=== PATIENT | female | born 1990 | race Two or more races ===

== ENCOUNTER 2019-02-14 06:21 | Emergency (ER) | payer BC, MEDICAID ==
[~2019-02-14] VITALS: Ht 177.8 cm; Wt 81.6 kg
[2019-02-14 07:27] VITALS: BP 158/90
[2019-02-14] MEDS ORDERED: ACETAMINOPHEN 325 MG TAB PO ONE (08:15)
[2019-02-14] MEDS ORDERED: ACET325T82 PO (08:15)
[2019-02-14] MEDS ORDERED: METHOCARBAMOL 500 MG TAB PO ONE (08:15)
== END 2019-02-14 08:18 | disposition home or self-care (01) ==
LOC: EDBD 06:21 → ER 06:21
DX: R07.89 Other chest pain (principal); V43.52XA Car driver injured in collision with other type car in traffic accident, initial encounter; Y93.I9 Activity, other involving external motion; Y92.410 Unspecified street and highway as the place of occurrence of the external cause; Y99.8 Other external cause status
CPT/HCPCS: 71101

== ENCOUNTER 2019-06-08 10:43 | Inpatient (IN) | payer BC, SELFPAY ==
[~2019-06-08] VITALS: Ht 185.4 cm; Wt 93.8 kg
[~2019-06-08 10:43] MED LIST: ACET325T82 PO
[2019-06-08 11:20] LABS: Eosinophils # (auto) 0 10 ^3/uL (0-0.8); Monocytes # (auto) 0.3 10 ^3/uL (0-1.3); Neutrophils # (auto) 5.2 10 ^3/uL (1.6-8.6)
[2019-06-08 11:22] LABS: Basophils # (auto) 0 10 ^3/uL (0-0.2); Basophils % (auto) 0.4 % (0.0-2.0); Hematocrit 42.3 % (36.0-46.0); Hemoglobin 13.7 g/dL (12.2-16.2); Lymphocytes # (auto) 2.5 10 ^3/uL (0.4-5.4); Lymphocytes % (auto) 31.2 % (10.0-50.0); Mean Corpuscular Hemoglobin 25.1 pg (28.0-32.0); Mean Corpuscular Hgb Conc. 32.5 g/dL (32.0-36.0); Mean Corpuscular Volume 77.4 fL (80.0-100.0); Monocytes % (auto) 3.8 % (0.0-12.0); Neutrophils % (auto) 64.6 % (37.0-80.0); Nucleated Red Blood Cells % 0.1 %; Platelet Count (auto) 209 10^3/uL (140-450); Red Blood Cells 5.46 10^6/uL (4.0-5.20)
[2019-06-08] MEDS ORDERED: SODIUM CHLORIDE 0.9% 1,000 ML IVB ONE (11:26)
[2019-06-08] MEDS ORDERED: PROMETHAZINE HCL 25 MG/ML 1ML IV PRN (11:30)
[2019-06-08 11:38] LABS: Albumin 2.9 g/dL (3.4-5.0); Calcium 8.5 mg/dL (8.5-10.1); Potassium 3.3 mmol/L (3.5-5.1)
[2019-06-08 11:41] LABS: BUN/Creatinine Ratio 6.5; Bilirubin, Total 0.3 mg/dL (0.2-1.0); Total Protein 8.3 g/dL (6.4-8.2)
[2019-06-08 12:00] LABS: Magnesium 1.9 mg/dL (1.6-2.6)
[2019-06-08] MEDS ORDERED: AZITHROMYCIN 500MG/ 250ML 250 ML IV ONE (13:00)
[2019-06-08] MEDS ORDERED: DEXTROSE (50%) 50ML SYRG IV PRN (14:15)
[2019-06-08] MEDS ORDERED: NITROGLYCERIN 0.4 MG SL TAB SL PRN (14:15)
[2019-06-08] MEDS ORDERED: MORPHINE SULF INJ 2 MG/ML SYRINGE 1ML IV PRN (14:15)
[2019-06-08] MEDS ORDERED: ACETAMINOPHEN 325 MG TAB PO ONE (14:15)
[2019-06-08] MEDS: cefTRIAXone 1GM/50ML D5W 50 ML IV SCH (15:04)
[2019-06-08] MEDS: metroNIDAZOLE 500MG/100ML 100 ML IV SCH ×2 (15:05→21:46)
[2019-06-08 15:16] LABS: CRP High Sensitivity 9.23 mg/dL (< 0.3)
[2019-06-08] MEDS: ZINC SULFATE 220mg CAP or TAB PO SCH (16:22)
[2019-06-08] MEDS: CHOLECALCIFEROL (VITD3) 1,000IU=25mCg TAB PO SCH (16:22)
[2019-06-08] MEDS: ASCORBIC ACID 500 MG TAB PO SCH (16:22)
[2019-06-08] MEDS ORDERED: GLIP10TA9 PO (16:24)
[2019-06-08] MEDS ORDERED: METF-372 PO (16:24)
[2019-06-08] MEDS ORDERED: ENAL2.5T2 PO (16:24)
[2019-06-08] MEDS: ACCU-CHEK COMFORT CURVE STRIP VI SCH ×2 (17:44→21:47)
[2019-06-08] MEDS: InsuLIN REG 1unit/0.01ml Soln (100units/ml) SC SCH ×2 (17:45→22:21)
[2019-06-08 19:45] VITALS: BP 110/69
--- NOTE | 2019-06-08 19:45 | NUR ---
OPENING SHIFT NOTE: ASSUMED CARE OF PATIENT, A&O X4, NO S/S OF SOB OR DISTRESS, DENIES PAIN, BED IS LOW, LOCKED, TWO SIDE RAILS RAISED, CALL ELI WITHIN REACH. INSTRUCTED ON POC AND TO CALL FOR ASSISTANCE, PATIENT VERBALIZED UNDERSTANDING. WILL CONTINUE TO MONITOR Q 1HR AND PRN.
[2019-06-08 20:00] VITALS: BP 107/61
[2019-06-08] MEDS ORDERED: ALBUTEROL SULF HFA 90MCG INH 200DOSE IN SCH (22:00)
[2019-06-09] VITALS (7 sets, daily range): BP systolic 112–119; BP diastolic 60–68
[2019-06-09] MEDS: metroNIDAZOLE 500MG/100ML 100 ML IV SCH ×3 (06:25→21:59)
[2019-06-09] MEDS: ACCU-CHEK COMFORT CURVE STRIP VI SCH ×4 (06:25→22:27)
[2019-06-09] MEDS: InsuLIN REG 1unit/0.01ml Soln (100units/ml) SC SCH ×4 (06:33→22:28)
[2019-06-09] MEDS: ACETAMINOPHEN 500 MG TAB PO PRN (06:41)
[2019-06-09 06:50] LABS: Basophils # (auto) 0 10 ^3/uL (0-0.2); Eosinophils # (auto) 0 10 ^3/uL (0-0.8); Eosinophils % (auto) 0.1 % (0.0-7.0); Hemoglobin 11.8 g/dL (12.2-16.2); Lymphocytes # (auto) 1.7 10 ^3/uL (0.4-5.4); Monocytes # (auto) 0.2 10 ^3/uL (0-1.3); Neutrophils # (auto) 2.3 10 ^3/uL (1.6-8.6); Nucleated Red Blood Cells % 0.1 %; White Blood Cell 4.2 10^3/uL (4.4-10.8)
[2019-06-09 06:54] LABS: Basophils % (auto) 0.2 % (0.0-2.0); Hematocrit 35.6 % (36.0-46.0); Lymphocytes % (auto) 40.1 % (10.0-50.0); Mean Corpuscular Hemoglobin 25.4 pg (28.0-32.0); Mean Corpuscular Hgb Conc. 33.2 g/dL (32.0-36.0); Mean Corpuscular Volume 76.6 fL (80.0-100.0); Monocytes % (auto) 4.4 % (0.0-12.0); Neutrophils % (auto) 55.2 % (37.0-80.0); Platelet Count (auto) 189 10^3/uL (140-450); Red Blood Cells 4.64 10^6/uL (4.0-5.20); Red Cell Distribution Width 16.2 % (11.8-14.3)
--- NOTE | 2019-06-09 07:06 | NUR ---
TEMPERATURE IS 101.2. PATIENT IS UNCOVERED IN THE BED AND DENIES ANY CHILLS. NO S/S OF DISTRESS OR SOB. WILL MEDICATE FOR FEVER.
[2019-06-09 07:09] LABS: Potassium 3.3 mmol/L (3.5-5.1)
[2019-06-09 07:18] LABS: Albumin 2.3 g/dL (3.4-5.0); BUN/Creatinine Ratio 8.8; Bilirubin, Total 0.2 mg/dL (0.2-1.0); Calcium 8.2 mg/dL (8.5-10.1); Total Protein 6.8 g/dL (6.4-8.2)
--- NOTE | 2019-06-09 08:30 | NUR ---
OPENING SHIFT NOTE: PATIENT RESTING IN BED LYING IN BED LOW-FOWLERS. PATIENT SATURATIONS ON 4L NC AT 88-89%. PATIENT PLACED ON OXYMIZER AT 4L. PATIENT STILL SATURATING AT 89-90%. OXYMIZER INCREASED TO 5L. NOW SATURATING AT 92%. PATIENT INSTRUCTED TO USE INCENTIVE SPIROMETER. VERBALIZED UNDERSTANDING. PATIENT INSTRUCTED TO AMBULATE IN ROOM AND TO SIT IN CHAIR. VERBALIZED UNDERSTANDING. PATIENT UPDATED ON POC. ALL QUESTIONS ANSWERED. BED IN LOWEST LOCKED POSITION WITH CALL LIGHT WITHIN REACH. LEFT SAMPLE CUPS FOR PATIENT TO COLLECT STOOL AND URINE SAMPLE. WILL CONTINUE CARE.
[2019-06-09] MEDS: cefTRIAXone 1GM/50ML D5W 50 ML IV SCH (09:16)
[2019-06-09] MEDS: ZINC SULFATE 220mg CAP or TAB PO SCH (09:17)
[2019-06-09] MEDS: CHOLECALCIFEROL (VITD3) 1,000IU=25mCg TAB PO SCH (09:17)
[2019-06-09] MEDS: ASCORBIC ACID 500 MG TAB PO SCH (09:17)
[2019-06-09] MEDS: ENOXAPARIN SOD 40 MG/0.4 ML SYRINGE SC SCH (09:19)
[2019-06-09] MEDS ORDERED: AZITHROMYCIN 500MG/ 250ML 250 ML IV SCH (10:00)
[2019-06-09] MEDS ORDERED: AZITHROMYCIN DIHYD 500 MG VIAL IV SCH (10:00)
[2019-06-09] MEDS ORDERED: POTASSIUM CHL 20 Meq TABLET PO ONE (10:30)
[2019-06-09 10:49] LABS: Cholesterol 94 mg/dL (< 200)
[2019-06-09 10:52] LABS: HDL Cholesterol 29 mg/dL (40-59); LDL Cholesterol 39 mg/dL (< 100); Triglycerides 198 mg/dL (< 150)
[2019-06-09] MEDS ORDERED: AZITHROMYCIN 250 MG TAB PO ONE (11:00)
--- NOTE | 2019-06-09 11:23 | NUR ---
INFLUENZA SWAB SENT.
--- NOTE | 2019-06-09 12:30 | NUR ---
MD AT BEDSIDE: DR. KLEIN AT BEDSIDE, DISCUSSED PLAN OF CARE WITH PATIENT, PENDING RESULTS FOR AREVALO VIRUS, AND MANAGEMENT OF DIABETES. PATIENT VERBALIZED UNDERSTANDING, CONTINUE CARE.
[2019-06-09] MEDS: ALBUTEROL SULF HFA 90MCG INH 200DOSE IN SCH ×2 (14:00→22:27)
--- NOTE | 2019-06-09 14:38 | NUR ---
INSTRUCTED PATIENT TO PLEASE PROVIDE A URINE SAMPLE CUP LEFT AT BEDSIDE.
[2019-06-09] MEDS: INSULIN LISPRO (HUMAN) 100 UNITS/ML ML SC SCH (17:38)
--- NOTE | 2019-06-09 18:30 | NUR ---
RESPIRATORY CULTURE SENT. RE-EDUCATED PATIENT ON NEED FOR URINE SAMPLE.
--- NOTE | 2019-06-09 19:30 | NUR ---
OPENING SHIFT NOTE: ASSUMED CARE OF PATIENT, PATIENT IS ALERT AND ORIENTED X4, PATIENT DENIES ANY SOB, PAIN OR DISTRESS. INSTRUCTED POC AND TO CALL IF PATIENT NEEDED ANYTHING, PATIENT VERBALIZED UNDERSTANDING. PATIENTS O2 SATURATION AT THIS TIME IS 90% ON 6L OXIMIZER. WILL CONTINUE TO MONITOR.
[2019-06-09] MEDS: FLORASTOR (S. BOULARDII) 250 MG CAP PO SCH (22:00)
[2019-06-09] MEDS ORDERED: INSULIN LANTUS (GLARGINE) 1 /0.01ml (100units/ml) SC SCH (22:00)
--- NOTE | 2019-06-09 22:00 | NUR ---
PATIENT ASSESSMENT: PATIENT IS AWAKE, ALERT, AND ORIENTED X4, BED IS LOW, LOCKED, TWO SIDE RAILS RAISED, AND CALL ELI IS WITHIN REACH. PROVIDED EDUCATION REGARDING NEW INSULIN, PATIENT VERBALIZED UNDERSTANDING. 1 PUFF VENTOLIN INHALER GIVEN AT THIS TIME, PATIENT DENIES ANY SOB, RESPIRATIONS ARE EVEN AND UNLABORED, O2 SATURATION IS 90% ON 6L OXIMIZER NC.
--- NOTE | 2019-06-09 22:27 | NUR ---
RT NOTE MDI GIVEN BY TRENTON LICONA WITHOUT INCIDENT. RT MADE SURE RN WAS FAMILIAR WITH THE PROPER ADMINISTRATION OF MDI.
--- NOTE | 2019-06-10 01:56 | NUR ---
PATIENT DID NOT VOID IN COLLECTION CONTAINER, PROVIDED ADDITIONAL EDUCATION REGARDING NEED TO COLLECT URINE AND SEND TO LAB. PATIENT STATED SHE FORGOT AND VERBALIZED UNDERSTANDING.
[2019-06-10] MEDS: ALBUTEROL SULF HFA 90MCG INH 200DOSE IN SCH ×3 (06:00→22:55)
--- NOTE | 2019-06-10 06:30 | NUR ---
COVID NEGATIVE RECEIVED CALL FROM CHARGE THAT PATIENT IS NEGATIVE FOR COVID. WILL ENDORSE CARE TO LEONOR LEONARD RN AND TRANSFER PATIENT TO ROOM 214B AT SHIFT CHANGE.
[2019-06-10] MEDS: metroNIDAZOLE 500MG/100ML 100 ML IV SCH (06:39)
[2019-06-10] MEDS: LEVOTHYROXINE SODIUM 25 MCG TAB PO SCH (07:10)
[2019-06-10] MEDS: INSULIN LISPRO (HUMAN) 100 UNITS/ML ML SC SCH ×3 (07:11→17:19)
[2019-06-10] MEDS: ACCU-CHEK COMFORT CURVE STRIP VI SCH ×4 (07:13→22:00)
[2019-06-10] MEDS: InsuLIN REG 1unit/0.01ml Soln (100units/ml) SC SCH ×4 (07:13→23:40)
--- NOTE | 2019-06-10 07:32 | NUR ---
REPORT GIVEN IN DETAIL TO LEONOR CHOWDHURY.
[2019-06-10 07:35] LABS: Calcium 8.3 mg/dL (8.5-10.1); Magnesium 1.8 mg/dL (1.6-2.6); Potassium 3.5 mmol/L (3.5-5.1)
[2019-06-10 07:40] LABS: BUN/Creatinine Ratio 7.7
--- NOTE | 2019-06-10 08:22 | NUR ---
PATIENT TRANSPORTED VIA WHEELCHAIR WITHOUT INCIDENT TO THE CARE OF PRIMARY RN.
--- NOTE | 2019-06-10 08:30 | NUR ---
PATIENT ON UNIT IN ROOM 214B REPORT RECIEVED FROM TRENTON LICONA NOC SHIFT. TRANSPORTED VIA WHEELCHAIR WITH ALL PERSONAL BELONGINGS, ORIENTED TO ROOM, BED IN LOW AND LOCKED POSITION, RAILS UPX2, NO-SLIP SOCKS ON. OXYGEN ON 6L VIA OXYMIZER SATURATING AT 86%, INCREASED TO 8L. PROVIDED PATIENT WITH BEDSIDE COMMODE AND URINE SPECIMEN CUP, REQUESTING A SAMPLE, PATIENT VERBALIZES UNDERSTANDING.
[2019-06-10 09:00] VITALS: BP 103/52
--- NOTE | 2019-06-10 09:30 | NUR ---
INCREASED OXYGEN SUPPLEMENTATION PATIENT PULSE OXIMETRY ON REASSESSMENT SHOWS 88% ON 8L OXYMIZER, INCREASED TO 10L WITH SMALL IMPROVEMENT TO 89% AFTER TEN MINUTES. NOTIFIED DR HRARIS. NEW ORDERS ADDED TO RETEST FOR COVID FOR POSSIBLE FALSE NEGATIVE, CONTINUOUS PULSE OXIMETER IN ROOM. PAGE TO RT SENT, DR HARRIS STATED WILL BE AT NURSES STATION FOR ORDERS.
--- NOTE | 2019-06-10 09:59 | NUR ---
pt connected to continuous pulse ox monitor. spo2 88% on 15 liters oxymizer. rn aware.
--- NOTE | 2019-06-10 10:05 | NUR ---
DORA SPECIMEN COLLECTED AMBULATED BY TRENTON FUENTES TO LAB
[2019-06-10 10:13] LABS: Basophils # (auto) 0 10 ^3/uL (0-0.2); Basophils % (auto) 0.5 % (0.0-2.0); Eosinophils # (auto) 0 10 ^3/uL (0-0.8); Hematocrit 34.9 % (36.0-46.0); Hemoglobin 11.6 g/dL (12.2-16.2); Lymphocytes # (auto) 1.8 10 ^3/uL (0.4-5.4); Mean Corpuscular Hemoglobin 25.6 pg (28.0-32.0); Mean Corpuscular Hgb Conc. 33.4 g/dL (32.0-36.0); Mean Corpuscular Volume 76.8 fL (80.0-100.0); Monocytes # (auto) 0.3 10 ^3/uL (0-1.3); Monocytes % (auto) 4.8 % (0.0-12.0); Neutrophils # (auto) 3.5 10 ^3/uL (1.6-8.6); Neutrophils % (auto) 62.7 % (37.0-80.0); Platelet Count (auto) 245 10^3/uL (140-450); Red Blood Cells 4.54 10^6/uL (4.0-5.20); Red Cell Distribution Width 15.9 % (11.8-14.3); White Blood Cell 5.6 10^3/uL (4.4-10.8)
[2019-06-10] MEDS ORDERED: MAGNESIUM OXIDE 400 MG TAB PO ONE (10:15)
[2019-06-10] MEDS ORDERED: POTASSIUM CHL 20 Meq TABLET PO ONE (10:15)
[2019-06-10] MEDS ORDERED: VANCOMYCIN PER PHARMACY 0 MG IV SCH (10:15)
--- NOTE | 2019-06-10 10:30 | NUR ---
PATIENT TRANSFERRED TO 237 PATIENT TRANSPORTED VIA WHEELCHAIR TO ROOM 237 WITH ALL PERSONAL BELONGINGS BY RN WITH BOTH PARTIES WEARING N95. PATIENT ON 15L OXYMIZER AND TELEMETRY MONITORING.
--- NOTE | 2019-06-10 10:35 | NUR ---
PATIENT RETURNED TO ROOM 237. REPORT RECEIVED FROM TRENTON CHERRY.
--- NOTE | 2019-06-10 10:40 | NUR ---
REPORT GIVEN TO ACCEPTING RN SPOKE TO TRENTON GUPTA, ALL QUESTIONS ANSWERED
[2019-06-10] MEDS ORDERED: methylPREDNISolone SOD SUCC 40 MG/ML VL IV ONE (10:45)
[2019-06-10] MEDS: ENOXAPARIN SOD 40 MG/0.4 ML SYRINGE SC SCH (11:00)
[2019-06-10] MEDS: ZINC SULFATE 220mg CAP or TAB PO SCH (11:00)
[2019-06-10] MEDS: ASCORBIC ACID 500 MG TAB PO SCH (11:00)
[2019-06-10] MEDS: AZITHROMYCIN 250 MG TAB PO SCH (11:00)
[2019-06-10] MEDS: CHOLECALCIFEROL (VITD3) 1,000IU=25mCg TAB PO SCH (11:00)
[2019-06-10] MEDS: FLORASTOR (S. BOULARDII) 250 MG CAP PO SCH ×2 (11:00→22:21)
[2019-06-10] MEDS: VANCOMYCIN 1GM/250ML 250 ML IV SCH ×2 (11:00→19:00)
[2019-06-10] MEDS ORDERED: SODIUM CHLORIDE 0.9% 500 ML IV ONE (11:15)
[2019-06-10] MEDS ORDERED: ENOXAPARIN SOD 100 MG/1 ML SYRINGE SC ONE (11:45)
--- NOTE | 2019-06-10 12:45 | NUR ---
DR. HARRIS AT BEDSIDE. NEW ORDERS RECEIVED AND CARRIED OUT.
[2019-06-10] MEDS ORDERED: ENOXAPARIN SOD 60 MG/0.6 ML SYRINGE SC ONE (13:15)
[2019-06-10 13:21] LABS: Partial Thromboplastin Time 32.3 sec (23.64-32.05)
[2019-06-10] MEDS: MEROPENEM 1GM IVPB 100 ML IV SCH ×2 (16:13→22:21)
--- NOTE | 2019-06-10 16:30 | NUR ---
CALLED [facility] TO GIVE REPORT. NURSE WAS IN COVID-19 POSITIVE PATIENT ROOM. ADVISED THEY WOULD CALL WHEN SHE WAS AVAILABLE.
--- NOTE | 2019-06-10 17:20 | NUR ---
REPORT GIVEN TO TRENTON YOU.
--- NOTE | 2019-06-10 17:24 | NUR ---
CT OF [facility] PENDING REPORT OBTAINED. RN AWARE CT OF CHEST PENDING TODAY. REQUESTED RN TO TRANSFER FOR CT OF CHEST BEFORE ARRIVAL TO [facility]. RN VERBALIZED UNDERSTANDING.
--- NOTE | 2019-06-10 17:45 | NUR ---
PATIENT TAKEN DOWN TO CT VIA WHEELCHAIR BY RESOURCE TRENTON FUENTES.
--- NOTE | 2019-06-10 17:46 | NUR ---
PATIENT WILL BE TAKEN TO [facility] AFTER CT BY RESOURCE TRENTON FUENTES.
[2019-06-10] MEDS ORDERED: IOHEXOL 350 MG/ML 100ML IJ ONE (17:50)
[2019-06-10 18:00] VITALS: BP 111/59
--- NOTE | 2019-06-10 18:00 | NUR ---
[facility] pt transferred to floor LALITA DONOVAN transfered to 263 via [facility] on fermentation operator and portable 02 15L/MIN non-rebreather. Patients pox fluctuating 85-88%. Patient does not appear to have muscle accessory use, patient only stating," I feel fine, its just when I move around I get a little sob". All patient medications and personal belongings transfered with patient to receiving floor. R.t paged of arrival as patient is to be placed on a high flow. - Patient alert and oriented x4, denies any pain. Moves all extremities. Patient noted SR. BP stable. Lungs diminished, no cough noted. Abd soft. Patient stating she started her menstrual cycle on 06/07/19 and is currently mensurating. Per patient she urinating 2x today via bsc. Informed patient all urine is to be monitored at this time. All skin intact. IV to left forearm 20g intact/ patent. See further notes. All questions and concerns addressed.
[2019-06-10 19:03] VITALS: BP 100/51
[2019-06-10 20:00] VITALS: BP 122/73
[2019-06-10] MEDS ORDERED: INSULIN LANTUS (GLARGINE) 1 /0.01ml (100units/ml) SC SCH (22:00)
--- NOTE | 2019-06-10 22:00 | NUR ---
MD called to check on pt. New orders given to do T cell panel but order not found in order list so lab was called and they said it was a "send out" and they ordered the order under misc. Also ordered by MD was a CXR at 0700 and a CD4. Pt is stable at this time. RT requested FiO2 to be increased to 95%. Pt did inhaler at bedside. Tolerated all meds well. NS started at 75ml/hr per order from MD. Stable at this time. Will continue to monitor.
[2019-06-10] MEDS: MAGNESIUM OXIDE 400 MG TAB PO SCH (22:21)
[2019-06-10] MEDS: methylPREDNISolone SOD SUCC 40 MG/ML VL IV SCH (22:21)
[2019-06-10] MEDS: ENOXAPARIN SOD 100 MG/1 ML SYRINGE SC SCH (22:22)
[2019-06-10 22:55] VITALS: BP 111/57
[2019-06-10] MEDS ORDERED: SODIUM CHLORIDE 0.9% 1,000 ML IV SCH (23:30)
[2019-06-10 23:51] VITALS: BP 111/57
--- NOTE | 2019-06-11 01:54 | NUR ---
Pt remains stable at this time. No S/S of distress and seems to be resting comfortably on HiFlow. Will continue to monitor.
[2019-06-11] MEDS: VANCOMYCIN 1GM/250ML 250 ML IV SCH ×3 (03:00→21:08)
[2019-06-11] MEDS: ALBUTEROL SULF HFA 90MCG INH 200DOSE IN SCH ×3 (05:55→21:07)
--- NOTE | 2019-06-11 05:55 | NUR ---
Respiratory note: SPO2 86 UPON ENTERING ROOM. FLOW INCREASED TO 60. INHALER GIVEN BY RT, WITHOUT INCIDENT. RN AT BEDSIDE. BS DIMINISHED. PT SAT UPRIGHT. SPO2 NOW 92%.
[2019-06-11] MEDS: MEROPENEM 1GM IVPB 100 ML IV SCH ×3 (06:00→22:00)
[2019-06-11] MEDS: ACCU-CHEK COMFORT CURVE STRIP VI SCH ×4 (06:53→22:00)
[2019-06-11] MEDS: InsuLIN REG 1unit/0.01ml Soln (100units/ml) SC SCH ×4 (06:54→22:00)
[2019-06-11] MEDS: LEVOTHYROXINE SODIUM 25 MCG TAB PO SCH (07:00)
[2019-06-11] MEDS: INSULIN LISPRO (HUMAN) 100 UNITS/ML ML SC SCH ×3 (07:29→18:29)
--- NOTE | 2019-06-11 07:30 | NUR ---
Pt desat down to 85% on 100% FiO2. RT turned up liters to 50LPM on HiFlow. Pt tolerated well satting at 92%. Discussed with pt if she had to be intubated would she want that. She said as a last resort that it would be acceptable. She is scared but understands that if she has to be intubated that it would be of benefit. Labs drawn. Report given, care endorsed.
--- NOTE | 2019-06-11 08:00 | NUR ---
REPORT RECEIVED PATIENT IN SEMI FOWLERS WATCHING TV ON HIGH FLOW, POX 92%. NO DISTRESS NOTED. SEE FURTHER NOTES.
[2019-06-11 08:33] VITALS: BP 109/56
[2019-06-11 08:54] LABS: Albumin 2.4 g/dL (3.4-5.0); Calcium 8.5 mg/dL (8.5-10.1); Potassium 4.4 mmol/L (3.5-5.1)
[2019-06-11 08:57] LABS: BUN/Creatinine Ratio 15.8; Bilirubin, Total 0.3 mg/dL (0.2-1.0); Total Protein 6.6 g/dL (6.4-8.2)
[2019-06-11 09:20] VITALS: BP 109/56
--- NOTE | 2019-06-11 10:00 | NUR ---
MD DR. HARRIS AT BEDSIDE. SPOKE TO PATIENT, ENCOURAGED I.S AND INCREASING ACTIVITY SLIGHTLY AROUND THE ROOM TOLERATED. PER MD. LOVENOX AT 100MG TO CONTINUE.
--- NOTE | 2019-06-11 10:00 | NUR ---
ACTIVITY PATIENT NOTED TO BE STANDING AT EDGE OF BED WITH SLIGHT DESATURATION TO 86%. PATIENT REMAINED CALM AND 02 INCREASED BACK TO 90-92%. ACTIVITY TOLERATED FAIRLY WITH STEADY GAIT. PATIENT RETURNED BACK TO EDGE OF BED INDEPENDENTLY WITHOUT PROBLEM.
[2019-06-11] MEDS: methylPREDNISolone SOD SUCC 40 MG/ML VL IV SCH ×2 (10:03→21:08)
[2019-06-11] MEDS: FLORASTOR (S. BOULARDII) 250 MG CAP PO SCH ×2 (10:04→21:08)
[2019-06-11] MEDS: AZITHROMYCIN 250 MG TAB PO SCH (10:04)
[2019-06-11] MEDS: MAGNESIUM OXIDE 400 MG TAB PO SCH ×2 (10:04→21:08)
[2019-06-11] MEDS: ZINC SULFATE 220mg CAP or TAB PO SCH (10:04)
[2019-06-11] MEDS: ASCORBIC ACID 500 MG TAB PO SCH (10:05)
[2019-06-11] MEDS: CHOLECALCIFEROL (VITD3) 1,000IU=25mCg TAB PO SCH (10:13)
[2019-06-11] MEDS: ENOXAPARIN SOD 100 MG/1 ML SYRINGE SC SCH ×2 (10:13→21:09)
--- NOTE | 2019-06-11 12:00 | NUR ---
NUTRITION PATIENT TOLERATING LUNCH TRAY. EATING INDEPENDENTLY. 02 DECREASED SLIGHTLY TO 85%, PATIENT NOTED TO TAKE BREAKS IN BETWEEN AND ABLE TO INCREASE BACK TO 92%.
[2019-06-11 12:20] VITALS: BP 107/61
[2019-06-11 14:10] VITALS: BP 107/61
--- NOTE | 2019-06-11 15:00 | NUR ---
ELIMINATION PATIENT ABLE TO USE BSC INDEPENDENTLY. PATIENT HAD A MIXED STOOL OF BROWN LOOSE/ WATERY BM WITH VAL COLORED URINE, APPROX. 800CC. WILL CONTINUE TO MONITOR. CYLINDER PLACED IN BSC FOR ACCURATE OUTPUT. UA/ PENDING. PATIENT AWARE TO NOTIFY NURSE WHEN AVAILABLE.
[2019-06-11 16:05] VITALS: BP 109/49
--- NOTE | 2019-06-11 16:30 | NUR ---
RESTING PATIENT RESTING AT THIS TIME. SLEEPING, PT REMAINS ON HIGH FLOW AT 60LITERES/ 100% FI02. POX NOTED AT 95% NO DISTRESS NOTED.
--- NOTE | 2019-06-11 17:35 | NUR ---
NUTRITION PATIENT GIVEN DINNER TRAY. PATIENT NOTED TO TRANSFER INDEPENDENTLY TO CHAIR AT BEDSIDE. NO DISTESS NOTED. PATIENT AWARE TO TAKEN BREAKS IF SOB OR DESATURATION.
--- NOTE | 2019-06-11 19:00 | NUR ---
Opening Shift Note: Primary RN Angel Garay received report on patient. Patient is A/Ox 4. Patient currently on high flow 60L with FIO2 100%. Patient currently in no signs of discomfort or distress. Safety precautions in place. Will continue to monitor. Patient on isolation for rule out COVID 19. RN to monitor patient Q 1 hour and as needed. Patient educated on calling the nurse for any assistance. Patient verbalized understanding of teaching provided.
[2019-06-11 20:00] VITALS: BP 108/64
[2019-06-11] MEDS ORDERED: INSULIN LANTUS (GLARGINE) 1 /0.01ml (100units/ml) SC SCH (22:00)
--- NOTE | 2019-06-11 22:40 | NUR ---
RT NOTE RN AT BEDSIDE DOING CARES, CARMEN WATER FOR HFNC WAS LOW. NEW WATER GIVN Addendum: 06/11/19 at 2241 by Margi Kitchen RT GIVEN TO TRENTON DONNELLY RT AT DOOR WATCHING RN CHANGE THE WATER. ALARM ON HFNC OFF AND TEMP IS GOOD.
[2019-06-11 23:11] LABS: Urine Bacteria NONE SEEN /hpf (None Seen); Urine Blood 3+ /uL (Negative); Urine Mucus FEW (None Seen); Urine WBC 43 /hpf (0 - 5)
--- NOTE | 2019-06-11 23:42 | NUR ---
RN received call from Dr. Hunt. made aware of patient's condition and situation. No new orders at this time. RN will continue to monitor and assess patient. Addendum: 06/12/19 at 0014 by JUANI ESPOSITO RN RN Dr. Hunt was informed how patient continues with periods of desaturation and drops to 86% and then jumps back up to 92%. Dr. Hunt recommends that patient lay prone to see if it helps with her breathing. RN will inform patient.
--- NOTE | 2019-06-11 23:45 | NUR ---
RN spoke with patient: RN informed patient that Dr. Hunt recommends she lay on her stomach in a prone position to help with her breathing. Patient verbalized understanding of teaching provided and informed RN she will attempt to lay in a prone position.
[2019-06-11 23:49] LABS: Amphetamine Screen, Urine NEGATIVE (NEGATIVE); Barbiturate Scree,Urine NEGATIVE (NEGATIVE); Benzodiazephine Screen, Urine NEGATIVE (NEGATIVE); Cannabinoid Screen, Urine NEGATIVE (NEGATIVE); Cocaine Screen, Urine NEGATIVE (NEGATIVE); Opiate Scree,Urine NEGATIVE (NEGATIVE); Phencyclidine Screen, Urine NEGATIVE (NEGATIVE)
[2019-06-12] VITALS (9 sets, daily range): BP systolic 103–120; BP diastolic 61–71
--- NOTE | 2019-06-12 00:10 | NUR ---
Patient now noted with a oxygen saturation of 97%. RN will continue to monitor and assess patient.
--- NOTE | 2019-06-12 01:02 | NUR ---
Patient continues to have an oxygen saturation of 97% and above and now has been having an oxygen saturation of 100%. Patient laying in a prone position continues to be effective in helping patient breath and maintain an oxygen saturation above 97%.
--- NOTE | 2019-06-12 03:00 | NUR ---
RT dropped patients high flow to 55L and FIO2 of 70%. Patient is initially tolerating supplemental oxygen change.
--- NOTE | 2019-06-12 03:30 | NUR ---
Patient began to de sat to 84-86%. RN placed patient back to her original measurements which are now back to 60L and FIO2 of 100%. Patient now saturating at 97%. RT notified.
--- NOTE | 2019-06-12 05:00 | NUR ---
Primary RN faye patient's morning labs with patients consent. Patient tolerated intervention well with no s/s of discomfort or distress.
--- NOTE | 2019-06-12 05:13 | NUR ---
ISOLATION PATIENT IS NEGATIVE FOR COVID 19 PATIENT IS ON HIGH FLOW O2 AND WILL NEED TO REMAIN ON ISOLATION UNTIL DR HARRIS SEES THE PATIENT AND CLEARS HIM TODAY. PRIMARY RN JUANI NOTIFIED
--- NOTE | 2019-06-12 05:15 | NUR ---
RN asked patient to bathe but patient refused. Patient states he feels clean and does not want to bathe at this time. RN cleaned patients room and organized all room essentials. Patient was thankful but still refused bath at this time. RN tucked patient into bed and organized bed linen. Patient continues to rest peacefully and comfortably with no s/s of discomfort or distress.
[2019-06-12 05:18] LABS: Basophils # (auto) 0 10 ^3/uL (0-0.2); Basophils % (auto) 0.2 % (0.0-2.0); Eosinophils # (auto) 0 10 ^3/uL (0-0.8)
[2019-06-12 05:21] LABS: Hematocrit 33.5 % (36.0-46.0); Hemoglobin 11.4 g/dL (12.2-16.2); Lymphocytes # (auto) 1.3 10 ^3/uL (0.4-5.4); Lymphocytes % (auto) 17.5 % (10.0-50.0); Mean Corpuscular Hemoglobin 25.9 pg (28.0-32.0); Mean Corpuscular Hgb Conc. 33.9 g/dL (32.0-36.0); Mean Corpuscular Volume 76.6 fL (80.0-100.0); Monocytes # (auto) 0.5 10 ^3/uL (0-1.3); Monocytes % (auto) 7.4 % (0.0-12.0); Neutrophils # (auto) 5.4 10 ^3/uL (1.6-8.6); Neutrophils % (auto) 74.9 % (37.0-80.0); Nucleated Red Blood Cells % 0.2 %; Platelet Count (auto) 353 10^3/uL (140-450); Red Blood Cells 4.37 10^6/uL (4.0-5.20); Red Cell Distribution Width 16.1 % (11.8-14.3); White Blood Cell 7.3 10^3/uL (4.4-10.8)
[2019-06-12] MEDS: ALBUTEROL SULF HFA 90MCG INH 200DOSE IN SCH ×3 (05:31→21:33)
[2019-06-12] MEDS: MEROPENEM 1GM IVPB 100 ML IV SCH ×3 (05:31→21:33)
[2019-06-12 05:45] LABS: Albumin 2.3 g/dL (3.4-5.0); Calcium 8.7 mg/dL (8.5-10.1)
[2019-06-12 05:53] LABS: BUN/Creatinine Ratio 14.8; Bilirubin, Total 0.2 mg/dL (0.2-1.0); CRP High Sensitivity 3.87 mg/dL (< 0.3); Total Protein 7.2 g/dL (6.4-8.2)
--- NOTE | 2019-06-12 06:00 | NUR ---
OUTPUT: Patient had 1,800 mL of urine output.
[2019-06-12] MEDS: LEVOTHYROXINE SODIUM 25 MCG TAB PO SCH (06:24)
[2019-06-12] MEDS: ACCU-CHEK COMFORT CURVE STRIP VI SCH ×4 (06:24→22:04)
[2019-06-12] MEDS: VANCOMYCIN 1GM/250ML 250 ML IV SCH ×3 (06:24→22:01)
--- NOTE | 2019-06-12 06:24 | NUR ---
Second IV attempt: RN attempted to start another IV on patient to her Right AC but patient refused and stated her current IV still works and is not bother her. Patient states she will notify RN when her current IV begins to bother her so a second IV can be started.
[2019-06-12] MEDS: InsuLIN REG 1unit/0.01ml Soln (100units/ml) SC SCH ×4 (06:25→22:03)
[2019-06-12] MEDS ORDERED: INSULIN LISPRO (HUMAN) 100 UNITS/ML ML SC SCH (07:00)
--- NOTE | 2019-06-12 08:00 | NUR ---
Opening Shift Note Assumed care of patient, awake and alert, sitting on the bed for using IS for breathing exercise, patient stated that still coughing got like old blood with small amount after using IS. No S/S of distress/SOB or pain noted. Instructed on POC and to call for assist PRN, will continue to monitor for changes Q1hr and PRN. Patient made aware that Covid 19 for the second time came back with negative, waiting Dr. Hunt. Continue HFNC 60 LPM with 100%, O2 saturation 88-98% depending on activity and positioning.
--- NOTE | 2019-06-12 08:33 | NUR ---
Patient having breakfast, sitting at the edge of the bed, O2 saturation 97-98%, will continue to monitor and care. BT 98.7F.
[2019-06-12] MEDS: ENOXAPARIN SOD 100 MG/1 ML SYRINGE SC SCH (09:39)
[2019-06-12] MEDS: methylPREDNISolone SOD SUCC 40 MG/ML VL IV SCH (09:39)
[2019-06-12] MEDS: CHOLECALCIFEROL (VITD3) 1,000IU=25mCg TAB PO SCH (09:40)
[2019-06-12] MEDS: INSULIN LANTUS (GLARGINE) 1 /0.01ml (100units/ml) SC SCH ×2 (09:41→22:04)
[2019-06-12] MEDS: FLORASTOR (S. BOULARDII) 250 MG CAP PO SCH ×2 (09:41→21:33)
[2019-06-12] MEDS: MAGNESIUM OXIDE 400 MG TAB PO SCH ×2 (09:42→21:33)
[2019-06-12] MEDS: ASCORBIC ACID 500 MG TAB PO SCH (09:43)
[2019-06-12] MEDS: AZITHROMYCIN 250 MG TAB PO SCH (09:43)
[2019-06-12] MEDS: ZINC SULFATE 220mg CAP or TAB PO SCH (09:45)
--- NOTE | 2019-06-12 10:30 | NUR ---
Dr. Hunt at the bedside, plan of care discussed with patient, will continue treatment and isolation, plan to do bronchoscopy, patient verbalized understanding, and agreed with the plan, waiting for Dr. Goddard to see patient.
--- NOTE | 2019-06-12 10:46 | NUR ---
Patient sitting on the chair, transferred by herself, tolerated well, continue HFNC, will maintain FiO2 1.0 with flow 60 LPM per RT recommendation. Patient keep exercise IS. O2 saturation 90-96%. Will continue to monitor and care.
--- NOTE | 2019-06-12 11:25 | NUR ---
Patient went back to bed, tolerated well. RR 24-30 /min, O2 saturation with HFNC 92-96%.
--- NOTE | 2019-06-12 12:07 | NUR ---
Left the message to Dr. Goddard regarding the plan for Bronchoscopy and NPO. Waiting MD to call back.
[2019-06-12] MEDS: INSULIN LISPRO (HUMAN) 100 UNITS/ML ML SC SCH ×2 (12:20→17:54)
--- NOTE | 2019-06-12 14:00 | NUR ---
IV insertion IV access obtained, via clean sterile technique by inserting 20 gauge catheter at left hand after 1 attempt(s). IV secured properly. No trauma to site. Patient tolerated procedure well.
--- NOTE | 2019-06-12 14:05 | NUR ---
IV removal from Left AC IV DC'd with sterile technique, catheter fully intact. Pressure dressing applied to site. Patient tolerated procedure well.
--- NOTE | 2019-06-12 15:10 | NUR ---
Dr. Goddard at the bedside, seen and examined patient at this time, risks of bronchoscopy explained, won't do the procedure at this time, patient verbalized understanding and agreed with the plan, received order for CXR.
[2019-06-12] MEDS ORDERED: VANCOMYCIN 2,000 MG in D5W 5% 500 ML IV ONE (15:30)
--- NOTE | 2019-06-12 15:45 | NUR ---
During sleeping with prone position, her O2 saturation 96-98% with HFNC 100% 60 LPM, patient tolerated well around 30 minutes. Sleeping on her left side O2 saturation also around 97%. Will continue to monitor and care.
--- NOTE | 2019-06-12 18:00 | NUR ---
Dinner tray provided, no complaining of N/V or diarrhea noted, had small BM twice with semi soft, will continue to monitor and care. Vital sign stable, no fever noted, HR 70-75/min with SR, SBP 100-120 mmHg, still having period. No complaining of SOB noted, continue HFNC 100% with 60 LPM, O2 saturation 90-96%.
--- NOTE | 2019-06-12 19:00 | NUR ---
Opening Shift Note: Primary RN Angel Garay received report on patient. Patient is A/Ox 4. Patient currently remains on high flow 60L with FIO2 100%. Patient currently in no s/s of discomfort or distress. Safety precautions in place. Will continue to monitor. Patient remains on isolation for rule out COVID 19. RN to monitor patient Q 1 hour and as needed. Patient educated on calling the nurse for any assistance. Patient verbalized understanding of teaching provided.
--- NOTE | 2019-06-12 22:00 | NUR ---
Patient had 800mL of urine output in bedside commode.
[2019-06-13] VITALS (7 sets, daily range): BP systolic 94–110; BP diastolic 46–68
--- NOTE | 2019-06-13 03:15 | NUR ---
RN asked patient to have a bed bath but patient refused at this time. Patient states she feels clean and does not want to have a bath at this time. RN cleaned patients room and organized all room essentials as well as performed a full linen change.
--- NOTE | 2019-06-13 04:00 | NUR ---
Patient had 700mL of urine output in bedside commode.
--- NOTE | 2019-06-13 04:45 | NUR ---
Primary RN faye patient's morning labs with patients consent. Patient tolerated intervention well with no s/s of discomfort or distress.
[2019-06-13] MEDS: MEROPENEM 1GM IVPB 100 ML IV SCH (05:14)
[2019-06-13] MEDS: VANCOMYCIN 1GM/250ML 250 ML IV SCH ×3 (06:03→22:00)
[2019-06-13] MEDS: ALBUTEROL SULF HFA 90MCG INH 200DOSE IN SCH ×3 (06:04→22:00)
[2019-06-13] MEDS: LEVOTHYROXINE SODIUM 25 MCG TAB PO SCH (06:04)
[2019-06-13] MEDS: INSULIN LISPRO (HUMAN) 100 UNITS/ML ML SC SCH ×3 (06:25→18:38)
[2019-06-13] MEDS: InsuLIN REG 1unit/0.01ml Soln (100units/ml) SC SCH ×4 (06:26→22:00)
[2019-06-13] MEDS: ACCU-CHEK COMFORT CURVE STRIP VI SCH ×4 (06:27→22:00)
--- NOTE | 2019-06-13 08:30 | NUR ---
Opening Shift Note Assumed care of patient, awake and alert. No S/S of pain. SOB on exertion, patient on hi flow oxygen 55LPM, 100% FIO2, saturation 93%. See interventions for complete assessment bed locked on low position, side rails up x2, bed alarms on at all times, call pena within reach, instructed on POC and to call for assist PRN, will continue to monitor for changes Q1hr and PRN.
[2019-06-13] MEDS: ASCORBIC ACID 500 MG TAB PO SCH (10:04)
[2019-06-13] MEDS: CHOLECALCIFEROL (VITD3) 1,000IU=25mCg TAB PO SCH (10:05)
[2019-06-13] MEDS: FLORASTOR (S. BOULARDII) 250 MG CAP PO SCH ×2 (10:05→22:00)
[2019-06-13] MEDS: AZITHROMYCIN 250 MG TAB PO SCH (10:05)
[2019-06-13] MEDS: MAGNESIUM OXIDE 400 MG TAB PO SCH ×2 (10:05→22:00)
[2019-06-13] MEDS: ZINC SULFATE 220mg CAP or TAB PO SCH (10:06)
[2019-06-13] MEDS: ENOXAPARIN SOD 40 MG/0.4 ML SYRINGE SC SCH (10:06)
[2019-06-13] MEDS: INSULIN LANTUS (GLARGINE) 1 /0.01ml (100units/ml) SC SCH ×2 (10:08→22:00)
[2019-06-13 10:38] LABS: Hepatitis B Surface Antibody Positive
[2019-06-13 11:17] LABS: Hepatitis A Total Antibody Positive
[2019-06-13 11:37] LABS: Hepatitis B Core Total AB Negative; Hepatitis B Surface Antigen Negative (Negative); Hepatitis C Antibody Negative (Negative)
[2019-06-13] MEDS: PIPERACILLIN-TAZO 4.5GM 100 ML IV SCH ×2 (15:24→23:00)
--- NOTE | 2019-06-13 15:41 | NUR ---
Dr Baker at bedside, updated on patient's status. Patient seen and examined. Received verbal order for chest xray, CBC, CMP, A and A, ANCA, and Bumex 2mg IV once. Orders read back and verified. Will carry out.
--- NOTE | 2019-06-13 15:50 | NUR ---
Spoke to Eunice from Lab regarding Antinuclear/antibody and ANCA. Lab to put order in because it's a miscellaneous test.
[2019-06-13] MEDS ORDERED: BUMETANIDE 2.5mg/10ml (0.25 mg/ml) INJ IV ONE (16:00)
--- NOTE | 2019-06-13 19:45 | NUR ---
ADMITTED ON 06/08/2019. ORIGINAL COMPLAINT ABDOMINAL PAIN, NAUSEA VOMITING FOR 4 DAYS. ON THE TELEMETRY UNIT SHE WENT INTO RESPIRATORY DISTRESS AND WAS UPGRADED TO [facility]. RULED OUT FOR COVID TWICE. NOW ON DROPLET ISOLATION. ONE PERIPHERAL IV FOR ANTIBIOTICS. ON HIGH FLOW OXYGEN 55L / 100%. BUMEX GIVEN AT 1800. ALERT. ORIENTED. GETS UP TO THE COMMODE.
--- NOTE | 2019-06-13 20:42 | NUR ---
PATIENT REQUESTED THE BEDPAN BECAUSE IT IS TOO MUCH WORK TO GET UP TO THE COMMODE. WHEN SHE USED IT IT SPILLED ON TO THE BED. CURRENTLY DOING PERICARE AND LINEN CHANGE.
[2019-06-14] VITALS (12 sets, daily range): BP systolic 98–113; BP diastolic 58–84
--- NOTE | 2019-06-14 | NUR ---
RESTING. NSR WITHOUT ECTOPY. ALERT. ORIENTED. DENIES PAIN, NAUSEA, OR DIARRHEA. IV SITE SHOWS NO REDNESS OR SWELLING. ANTIBIOTIC INFUSING. ON THE SAME HIGH FLOW SETTINGS. RR NOW 20 . O2 SATURATION FLUCTUATES WITH ACTIVITY. IT AVERAGES BETWEEN 86% AND 90%. COARSE , STRIDOROUS COUGH. LUNG SOUNDS DIMINISHED AND CLEAR. NO FEVER.
--- NOTE | 2019-06-14 02:00 | NUR ---
PATIENT ROLLS SIDE TO SIDE FREQUENTLY. REMAINS ALERT. ORIENTED. APPROPRIATE. WHEN ASLEEP AND QUIET, HER O2 SATURATION IS 92-95%. WHEN SHE MOVES , SHE DESATURATES LOW 85%.
[2019-06-14 03:51] LABS: Albumin 2.6 g/dL (3.4-5.0); Calcium 8.2 mg/dL (8.5-10.1); Potassium 3.3 mmol/L (3.5-5.1)
[2019-06-14 03:55] LABS: BUN/Creatinine Ratio 19.8; Bilirubin, Total 0.3 mg/dL (0.2-1.0); Total Protein 7.2 g/dL (6.4-8.2)
--- NOTE | 2019-06-14 04:00 | NUR ---
DENIES NAUSEA, ABDOMINAL PAIN. NSR WITHOUT ECTOPY. LUNGS SLIGHTLY COARSE. NONPRODUCTIVE COUGH. NO EDEMA. NO FEVER. DROPLET ISOLATION.
[2019-06-14 04:38] LABS: Basophils # (auto) 0 10 ^3/uL (0-0.2); Basophils % (auto) 0.2 % (0.0-2.0); Eosinophils # (auto) 0 10 ^3/uL (0-0.8); Eosinophils % (auto) 0.5 % (0.0-7.0); Hematocrit 38.5 % (36.0-46.0); Hemoglobin 12.8 g/dL (12.2-16.2); Lymphocytes # (auto) 2.2 10 ^3/uL (0.4-5.4); Lymphocytes % (auto) 30.8 % (10.0-50.0); Mean Corpuscular Hemoglobin 25.5 pg (28.0-32.0); Mean Corpuscular Hgb Conc. 33.1 g/dL (32.0-36.0); Mean Corpuscular Volume 76.9 fL (80.0-100.0); Monocytes # (auto) 0.9 10 ^3/uL (0-1.3); Monocytes % (auto) 12.1 % (0.0-12.0); Neutrophils % (auto) 56.4 % (37.0-80.0); Platelet Count (auto) 446 10^3/uL (140-450); Red Blood Cells 5.01 10^6/uL (4.0-5.20); Red Cell Distribution Width 15.6 % (11.8-14.3); White Blood Cell 7.1 10^3/uL (4.4-10.8)
[2019-06-14] MEDS: VANCOMYCIN 1GM/250ML 250 ML IV SCH ×3 (05:43→22:08)
[2019-06-14] MEDS: ALBUTEROL SULF HFA 90MCG INH 200DOSE IN SCH ×3 (06:00→22:47)
--- NOTE | 2019-06-14 06:00 | NUR ---
NSR WITHOUT ECTOPY.ALERT. ORIENTED. IN NO DISTRESS AT REST. WITH MOVEMENT SHE CONTINUES TO DESATURATE.IV SITE SHOWS NO REDNESS OR SWELLING. ABLE TO TURN SELF ON OWN.
[2019-06-14] MEDS: PIPERACILLIN-TAZO 4.5GM 100 ML IV SCH ×2 (06:35→13:54)
[2019-06-14] MEDS: LEVOTHYROXINE SODIUM 25 MCG TAB PO SCH (06:35)
[2019-06-14] MEDS: ACCU-CHEK COMFORT CURVE STRIP VI SCH ×4 (06:36→22:09)
[2019-06-14] MEDS: INSULIN LISPRO (HUMAN) 100 UNITS/ML ML SC SCH ×3 (06:36→17:27)
[2019-06-14] MEDS: InsuLIN REG 1unit/0.01ml Soln (100units/ml) SC SCH ×4 (06:36→22:00)
--- NOTE | 2019-06-14 08:00 | NUR ---
Opening Shift Note Assumed care of patient, awake and alert, sitting on the bed, breakfast tray provided. No S/S of distress/SOB or pain noted, on HFNC O2 saturation 90-92%. No complaining of abdominal pain or diarrhea noted. Instructed on POC and to call for assist PRN, will continue to monitor for changes Q1hr and PRN. Still continue droplet isolation.
[2019-06-14] MEDS: ENOXAPARIN SOD 40 MG/0.4 ML SYRINGE SC SCH (08:56)
[2019-06-14] MEDS: FLORASTOR (S. BOULARDII) 250 MG CAP PO SCH ×2 (08:57→22:00)
[2019-06-14] MEDS: ZINC SULFATE 220mg CAP or TAB PO SCH (08:57)
[2019-06-14] MEDS: MAGNESIUM OXIDE 400 MG TAB PO SCH ×2 (08:58→22:08)
[2019-06-14] MEDS: ASCORBIC ACID 500 MG TAB PO SCH (08:58)
[2019-06-14] MEDS: AZITHROMYCIN 250 MG TAB PO SCH (08:58)
[2019-06-14] MEDS: CHOLECALCIFEROL (VITD3) 1,000IU=25mCg TAB PO SCH (08:58)
[2019-06-14] MEDS: INSULIN LANTUS (GLARGINE) 1 /0.01ml (100units/ml) SC SCH ×2 (09:01→22:09)
--- NOTE | 2019-06-14 09:30 | NUR ---
Patient had around 75 % of breakfast, no N/V or diarrhea noted. Patient stated that still feeling SOB when having activity such as go to bedside commode, won't sit on the chair today, and will do prone position during the day.
--- NOTE | 2019-06-14 10:20 | NUR ---
Patient able to take a nap, sleeping on her right side, RR 20-24, O2 saturation 88-94% with HFNC 55 LPM, 100%. Will continue to monitor and care.
[2019-06-14] MEDS ORDERED: FUROSEMIDE 40 MG/4 ML VIAL IV ONE (11:15)
[2019-06-14] MEDS ORDERED: POTASSIUM CHL 20 Meq TABLET PO ONE (11:15)
--- NOTE | 2019-06-14 12:15 | NUR ---
Nutrition Assessment Notes Please refer to link for full assessment notes. Est energy needs: 8900-4014 kcals (20-23 kcal/kgBW) Est protein needs: 65-82 gms/day (0.8-1.0 gm/kgAdjBW) Will continue to monitor and reassess prn. Addendum: 06/14/19 at [address] Amended: Links added.
--- NOTE | 2019-06-14 12:51 | NUR ---
Dr. Hunt at the bedside, seen patient at this time, plan of care discussed with patient, will continue treatment. Tylenol given for headache, and Lunch tray provided.
--- NOTE | 2019-06-14 13:40 | NUR ---
Transferred nursing care and gave a report to Klarissa CHOWDHURY.
--- NOTE | 2019-06-14 13:45 | NUR ---
ASSUMED CARE Assumed care from PAULO CHOWDHURY. Care initiated.
--- NOTE | 2019-06-14 13:59 | NUR ---
assessment Patient is a 28 year old female who is alert and oriented. Patients cognitive abilities are intact. Prior to admission patient lived home with family and functioned independently. Patient informed me she is able to care for her own ADLs. Per patient she will return home to her prior living arrangements post discharge and family will transport her home. Patient informed me she has no PCP. Patient has no need for DME prior to admission. Patient feels safe returning home on discharge. Patient will need ABG prior to discharge for home oxygen needs. I informed patient she has a right to speak to a social and political studies professor regarding all care. I informed patient she has a right to participate in any and all discharge planning. Patient does not have a POA and advanced directive. I have offered patient information on POA and advanced directives. I informed the patient the advantages and benefits of having an Advanced Directive. Patient verbalized understanding and agreed to discharge plan. Addendum: 06/14/19 at 1401 by Maricel JACINTO Amended: Links added.
--- NOTE | 2019-06-14 17:50 | NUR ---
BEDSIDE Dr. Goddard bedside.
[2019-06-14] MEDS: MEROPENEM 1GM IVPB 100 ML IV SCH (22:00)
--- NOTE | 2019-06-14 23:58 | NUR ---
Continuing care: Primary RN Angel Garay received report on patient. Patient is A/Ox 4. Patient currently remains on high flow 55L with FIO2 90%. Patient currently in no s/s of discomfort or distress. Safety precautions in place. Will continue to monitor. RN to monitor patient Q 1 hour and as needed. Patient educated on calling the nurse for any assistance. Patient verbalized understanding of teaching provided.
[2019-06-15] VITALS (13 sets, daily range): BP systolic 94–117; BP diastolic 50–70
--- NOTE | 2019-06-15 00:08 | NUR ---
RECEIVED REPORT FROM JESSI RN POC REVIEWED
--- NOTE | 2019-06-15 03:55 | NUR ---
Respiratory note: CHANGED WATER CARMEN WITHOUT INCIDENT.
--- NOTE | 2019-06-15 04:00 | NUR ---
RN asked patient to have a bed bath but patient refused at this time. Patient states she does not want to have a bath at this time. RN cleaned patients room and organized all room essentials as well as performed a linen change.
[2019-06-15] MEDS: MEROPENEM 1GM IVPB 100 ML IV SCH ×3 (04:57→22:56)
--- NOTE | 2019-06-15 05:21 | NUR ---
Patient had 900mL of urine output in bedside commode.
[2019-06-15] MEDS: VANCOMYCIN 1GM/250ML 250 ML IV SCH ×3 (06:15→21:37)
[2019-06-15] MEDS: ALBUTEROL SULF HFA 90MCG INH 200DOSE IN SCH ×3 (06:15→22:13)
[2019-06-15] MEDS: LEVOTHYROXINE SODIUM 25 MCG TAB PO SCH (06:31)
[2019-06-15] MEDS: InsuLIN REG 1unit/0.01ml Soln (100units/ml) SC SCH ×4 (06:32→21:52)
[2019-06-15] MEDS: INSULIN LISPRO (HUMAN) 100 UNITS/ML ML SC SCH ×3 (06:32→17:55)
[2019-06-15] MEDS: ACCU-CHEK COMFORT CURVE STRIP VI SCH ×4 (06:33→21:52)
--- NOTE | 2019-06-15 06:48 | NUR ---
Patient resting in bed comfortably with no s/s of discomfort or distress. Patient slept most of the night with no disturbances or complaints.
--- NOTE | 2019-06-15 07:50 | NUR ---
Opening Shift Note Assumed care of patient, awake and alert, lying on the bed and talking to her family on the phone. No S/S of distress/SOB or chest pain noted, no complaining of abdominal pain as well. Instructed on POC and to call for assist PRN, will continue to monitor for changes Q1hr and PRN. Continue HFNC 90% 55 LPM, O2 saturation 90-94%. Breakfast tray provided.
[2019-06-15] MEDS: ACETAMINOPHEN 500 MG TAB PO PRN (07:57)
--- NOTE | 2019-06-15 09:00 | NUR ---
Patient able to take a nap. O2 saturation 92-97%, RR 20-28/min, will continue to monitor and care.
[2019-06-15] MEDS: ENOXAPARIN SOD 40 MG/0.4 ML SYRINGE SC SCH (09:24)
[2019-06-15] MEDS: FLORASTOR (S. BOULARDII) 250 MG CAP PO SCH ×2 (09:24→21:40)
[2019-06-15] MEDS: MAGNESIUM OXIDE 400 MG TAB PO SCH ×2 (09:25→21:39)
[2019-06-15] MEDS: ASCORBIC ACID 500 MG TAB PO SCH (09:25)
[2019-06-15] MEDS: ZINC SULFATE 220mg CAP or TAB PO SCH (09:25)
[2019-06-15] MEDS: INSULIN LANTUS (GLARGINE) 1 /0.01ml (100units/ml) SC SCH ×2 (10:23→21:52)
[2019-06-15] MEDS: CHOLECALCIFEROL (VITD3) 1,000IU=25mCg TAB PO SCH (10:51)
[2019-06-15] MEDS ORDERED: BUMETANIDE 2.5mg/10ml (0.25 mg/ml) INJ IV ONE (12:30)
--- NOTE | 2019-06-15 12:30 | NUR ---
Dr. Hunt and Dr. Goddard at the bedside, seen and examined patient at this time, plan of care discussed with patient, will continue treatment, received new order for Bumex 1 mg IV once, will carry out. Patient agreed with the plan.
--- NOTE | 2019-06-15 13:30 | NUR ---
Prone position by patient, O2 saturation 94-97% with HFNC 55 LPM FiO2 90%.
--- NOTE | 2019-06-15 16:00 | NUR ---
patient able to get up and use the bedside commode by herself, less SOB than yesterday. Vital sign stable, no fever noted. No complaining of headache or abdominal pain noted. No diarrhea as well, had 1 small BM with soft and brown color.
--- NOTE | 2019-06-15 18:00 | NUR ---
Dinner tray provided. Patient sitting up on the bed, no complaining N/V noted.
--- NOTE | 2019-06-15 19:00 | NUR ---
REPORT REPORT RECEIVED FROM DAY SHIFT RN PAULO
--- NOTE | 2019-06-15 20:00 | NUR ---
ASSESS PATIENT IS AWAKE AND ALERT, WATCHING TV. SHE VERBALIZES THAT SHE FELT BETTER THAN YESTERDAY. NO PAIN COMPLAINED. PATIENT IS ON HIGH FLOW FIO2 90% 55L, SATURATIONS 94-99%. LUNGS SOUNDS CLEAR DIMINISHED ALL THROUGHOUT. FULL ASSESSMENT DONE. VS STABLE. ATE ABOUT 50% OF HER DINNER. ENCOURAGED TO DO INCENTIVE SPIROMETRY AND PRONE POSITIONING. SHE SAID SHE JUST BEEN ON PRONE POSITION LAST AROUND 6PM. INSTRUCTED ON POC AND TO CALL FOR ASSISTANCE. VERBALIZED UNDERSTANDING CALL ELI WITHIN REACH, BED AT LOW POSITION.
--- NOTE | 2019-06-15 23:55 | NUR ---
PATIENT RESTING VS STABLE NO COMPLAINS OF PAIN OR SOB/DISTRESS
[2019-06-16] VITALS (8 sets, daily range): BP systolic 105–111; BP diastolic 54–69
--- NOTE | 2019-06-16 00:15 | NUR ---
RESPIRATORY RT INFORMED ME THAT FIO2 DECREASED TO 75%
--- NOTE | 2019-06-16 05:00 | NUR ---
RESPIRATORY PATIENT DESATURATED TO LOW 86% WHEN SHE WENT TO USE THE COMMODE CHAIR TO URINATE. SATURATION PICKED UP TO 93% AFTER SHE SETTLED IN BED. WILL CONTINUE TO MONITOR
[2019-06-16] MEDS: VANCOMYCIN 1GM/250ML 250 ML IV SCH (05:11)
--- NOTE | 2019-06-16 06:30 | NUR ---
IV insertion IV access obtained, via clean sterile technique by inserting 20 gauge catheter at RIGHT HAND after attempt(s). IV secured properly. No trauma to site. Patient tolerated well. NOTE: IV AT LEFT HAND WITH REDNESS AND PAIN - IV DC'D
[2019-06-16] MEDS: LEVOTHYROXINE SODIUM 25 MCG TAB PO SCH (06:33)
[2019-06-16] MEDS: MEROPENEM 1GM IVPB 100 ML IV SCH ×2 (06:33→18:10)
[2019-06-16] MEDS: ALBUTEROL SULF HFA 90MCG INH 200DOSE IN SCH ×3 (06:37→22:52)
[2019-06-16] MEDS: InsuLIN REG 1unit/0.01ml Soln (100units/ml) SC SCH ×4 (07:00→22:00)
[2019-06-16] MEDS: ACCU-CHEK COMFORT CURVE STRIP VI SCH ×5 (07:00→22:00)
[2019-06-16] MEDS: INSULIN LISPRO (HUMAN) 100 UNITS/ML ML SC SCH ×3 (07:01→18:00)
--- NOTE | 2019-06-16 07:30 | NUR ---
RECEIVED REPORT FROM BRADLEY CHOWDHURY - ASSUMED CARE OF PATIENT.
--- NOTE | 2019-06-16 08:05 | NUR ---
ASSESSMENT COMPLETED - SEE SPREAD SHEET. O2 ON PER HI-FLOW - FIO2 55L, FIO2 70%. LUNGS DIMINISHED BILAT. OCC MOIST COUGH NOTED - EXPECTORATES SM AMT THICK CREAMY SECRETIONS. NO SOB NOTED. SOB WITH EXERTION NOTED. WILL CONTINUE TO MONITOR RESP STATUS.
[2019-06-16 09:22] LABS: Basophils # (auto) 0 10 ^3/uL (0-0.2); Eosinophils # (auto) 0.5 10 ^3/uL (0-0.8); Hemoglobin 12.3 g/dL (12.2-16.2); Lymphocytes # (auto) 1.9 10 ^3/uL (0.4-5.4); White Blood Cell 8.5 10^3/uL (4.4-10.8)
[2019-06-16 09:23] LABS: Basophils % (auto) 0.5 % (0.0-2.0); Eosinophils % (auto) 5.3 % (0.0-7.0); Hematocrit 37.6 % (36.0-46.0); Lymphocytes % (auto) 22.5 % (10.0-50.0); Mean Corpuscular Hemoglobin 25.4 pg (28.0-32.0); Mean Corpuscular Hgb Conc. 32.7 g/dL (32.0-36.0); Mean Corpuscular Volume 77.5 fL (80.0-100.0); Monocytes # (auto) 0.9 10 ^3/uL (0-1.3); Monocytes % (auto) 10.6 % (0.0-12.0); Neutrophils # (auto) 5.2 10 ^3/uL (1.6-8.6); Neutrophils % (auto) 61.1 % (37.0-80.0); Nucleated Red Blood Cells % 0.1 %; Platelet Count (auto) 482 10^3/uL (140-450); Red Blood Cells 4.85 10^6/uL (4.0-5.20); Red Cell Distribution Width 15.9 % (11.8-14.3)
[2019-06-16 09:42] LABS: BUN/Creatinine Ratio 11.1; Potassium 3.8 mmol/L (3.5-5.1)
[2019-06-16] MEDS: ENOXAPARIN SOD 40 MG/0.4 ML SYRINGE SC SCH (10:34)
[2019-06-16] MEDS: MAGNESIUM OXIDE 400 MG TAB PO SCH ×2 (10:37→21:56)
[2019-06-16] MEDS: FLORASTOR (S. BOULARDII) 250 MG CAP PO SCH ×2 (10:38→21:56)
[2019-06-16] MEDS: ZINC SULFATE 220mg CAP or TAB PO SCH (10:38)
[2019-06-16] MEDS: ASCORBIC ACID 500 MG TAB PO SCH (10:38)
[2019-06-16] MEDS: CHOLECALCIFEROL (VITD3) 1,000IU=25mCg TAB PO SCH (10:39)
[2019-06-16] MEDS: INSULIN LANTUS (GLARGINE) 1 /0.01ml (100units/ml) SC SCH ×2 (10:45→22:00)
--- NOTE | 2019-06-16 11:45 | NUR ---
DR HARRIS VISITS AND EXAMINES PATIENT - NEW ORDERS RECEIVED.
[2019-06-16] MEDS ORDERED: SODIUM CHLORIDE 0.9% 500 ML IV ONE (12:15)
--- NOTE | 2019-06-16 12:45 | NUR ---
UA, URINE CREAT AND PROTEIN SENT TO LAB.
--- NOTE | 2019-06-16 13:35 | NUR ---
DR MITCHELL VISITS AND EXAMINES PATIENT - ORDERS RECEIVED.
--- NOTE | 2019-06-16 14:01 | NUR ---
Respiratory note: PT PLACED ON 10LM OXYMIZER 72% FIO2, AND MAINTAINED SPO2 AT 93-94 % . PT TOLERATED CHANGE WELL. PER DR ALEXIS TITRATE FIO2 TO MAINTAIN SPO2 GREATER THAN 90%. RN MADE AWARE. WILL CONTINUE TO MONITOR PT.
--- NOTE | 2019-06-16 14:10 | NUR ---
DR BENSON VISITS AND EXAMINES PATIENT- ORDERS RECEIVED.
[2019-06-16 14:14] LABS: Urine Bacteria FEW /hpf (None Seen); Urine Blood TRACE /uL (Negative); Urine Budding Yeast FEW /hpf (None Seen); Urine Specific Gravity 1.008 (1.001-1.035); Urine WBC 2 /hpf (0 - 5)
[2019-06-16 14:31] LABS: Protein, Urine 35.4 mg/dL (0.0-11.9)
--- NOTE | 2019-06-16 14:45 | NUR ---
RENAL US COMPLETED AT BEDSIDE.
--- NOTE | 2019-06-16 18:00 | NUR ---
BS 85 HUMALOG INSULIN HELD - PATIENT ADVISED TO EAT 100% OF DINNER - VERBALIZED AGREEMENT.
[2019-06-16] MEDS: LINEZOLID 600MG TABLET PO SCH (21:56)
[2019-06-17] VITALS: BP 119/73
--- NOTE | 2019-06-17 02:28 | NUR ---
PATIENT'S BG WAS ONLY 65 AT 1800, CAME UP TO 160 AFTER DINNER, HAD LANTUS IN AM AND PM DOSE WAS HELD TO PREVENT NOCTURNAL HYPOGLYCEMIA.
[2019-06-17 04:00] VITALS: BP 123/67
[2019-06-17 04:37] LABS: Basophils # (auto) 0 10 ^3/uL (0-0.2); Eosinophils # (auto) 0.5 10 ^3/uL (0-0.8); Hematocrit 34.8 % (36.0-46.0); Lymphocytes # (auto) 1.6 10 ^3/uL (0.4-5.4); Lymphocytes % (auto) 19.8 % (10.0-50.0); Neutrophils # (auto) 5.1 10 ^3/uL (1.6-8.6); White Blood Cell 8.3 10^3/uL (4.4-10.8)
[2019-06-17 04:38] LABS: Basophils % (auto) 0.4 % (0.0-2.0); Hemoglobin 11.6 g/dL (12.2-16.2); Mean Corpuscular Hemoglobin 26.1 pg (28.0-32.0); Mean Corpuscular Hgb Conc. 33.5 g/dL (32.0-36.0); Monocytes # (auto) 1.1 10 ^3/uL (0-1.3); Monocytes % (auto) 12.8 % (0.0-12.0); Platelet Count (auto) 449 10^3/uL (140-450); Red Blood Cells 4.46 10^6/uL (4.0-5.20); Red Cell Distribution Width 15.8 % (11.8-14.3)
[2019-06-17 04:53] LABS: Magnesium 2.3 mg/dL (1.6-2.6)
[2019-06-17 04:55] LABS: BUN/Creatinine Ratio 11.5
[2019-06-17] MEDS: MEROPENEM 1GM IVPB 100 ML IV SCH ×2 (06:00→17:58)
[2019-06-17] MEDS: ALBUTEROL SULF HFA 90MCG INH 200DOSE IN SCH ×3 (06:32→22:47)
--- NOTE | 2019-06-17 06:32 | NUR ---
BREATHING TX ADMINISTERED VIA MDI WITH SPACER, PT TOLERATED WELL, NO ADVERSE REACTIONS NOTED. EDUCATED PT ON INHALER ADMINISTRATION WITH SPACER, PT VERBALIZED AND DEMONSTRATED UNDERSTANDING. HR 81, RR 16, SPO2 95% ON 10L OXYMIZER. NO SOB NOTED. WILL CONTINUE TO MONITOR PT.
[2019-06-17] MEDS: LEVOTHYROXINE SODIUM 25 MCG TAB PO SCH (06:33)
[2019-06-17] MEDS: ACCU-CHEK COMFORT CURVE STRIP VI SCH ×3 (06:34→22:00)
[2019-06-17] MEDS: InsuLIN REG 1unit/0.01ml Soln (100units/ml) SC SCH ×3 (06:35→22:48)
[2019-06-17] MEDS: INSULIN LISPRO (HUMAN) 100 UNITS/ML ML SC SCH (06:35)
[2019-06-17 08:00] VITALS: BP 123/67
--- NOTE | 2019-06-17 08:00 | NUR ---
Opening Shift Note Assumed care of patient, awake and alert. No S/S of distress/SOB or pain. Patient saturation 92% at 10 LPM oxygen via oxymizer. See interventions for complete assessment. Bed locked on low position, side rails up x2, call pena within reach, instructed on POC and to call for assist PRN, will continue to monitor for changes Q1hr and PRN.
[2019-06-17] MEDS: LINEZOLID 600MG TABLET PO SCH ×2 (10:14→22:47)
[2019-06-17] MEDS: CHOLECALCIFEROL (VITD3) 1,000IU=25mCg TAB PO SCH (10:15)
[2019-06-17] MEDS: ASCORBIC ACID 500 MG TAB PO SCH (10:15)
--- NOTE | 2019-06-17 10:15 | NUR ---
Spoke to Estephanie from infection control regarding isolation for viral pneumonia for this patient, Estephanie states "Just place patient on droplet precaution."
[2019-06-17] MEDS: ZINC SULFATE 220mg CAP or TAB PO SCH (10:17)
[2019-06-17] MEDS: FLORASTOR (S. BOULARDII) 250 MG CAP PO SCH (10:17)
[2019-06-17] MEDS: MAGNESIUM OXIDE 400 MG TAB PO SCH (10:17)
[2019-06-17] MEDS: ENOXAPARIN SOD 40 MG/0.4 ML SYRINGE SC SCH (10:18)
[2019-06-17] MEDS: INSULIN LANTUS (GLARGINE) 1 /0.01ml (100units/ml) SC SCH ×2 (10:20→22:00)
[2019-06-17] MEDS ORDERED: DEXTROSE (50%) 50ML SYRG IV PRN (11:45)
--- NOTE | 2019-06-17 11:52 | NUR ---
Dr Rick at bedside, updated on patient's status. Patient seen and examined. Will carry out new orders.
--- NOTE | 2019-06-17 13:15 | NUR ---
Dr Francisco at bedside, updated on patient's status. Patient seen and examined. Will carry out new orders.
--- NOTE | 2019-06-17 15:27 | NUR ---
BREATHING TX ADMINISTERED VIA MDI WITH SPACER, PT TOLERATED WELL, NO ADVERSE REACTIONS NOTED. EDUCATED PT ON INHALER ADMINISTRATION WITH SPACER, PT VERBALIZED AND DEMONSTRATED UNDERSTANDING. HR 72, RR 15, SPO2 93% ON 8L OXYMIZER. NO SOB NOTED. WILL CONTINUE TO MONITOR PT.
--- NOTE | 2019-06-17 15:28 | NUR ---
Dr Baker at bedside, updated on patient's status. Patient seen and examined. Plan to transfer patient to Tele floor. Will inform Dr Rick.
--- NOTE | 2019-06-17 15:32 | NUR ---
Sophia RT at bedside, oxygen decreased to 8 LPM oxygen via oxymizer, saturation 93%. Will continue to monitor.
[2019-06-17 16:00] VITALS: BP 127/77
--- NOTE | 2019-06-17 16:13 | NUR ---
Patient instructed to get out of bed and ambulate around room per Dr Rick, verbalized understanding.
--- NOTE | 2019-06-17 16:45 | NUR ---
Patient given complete bath by Marily CCT. Skin integrity assessed for any changes. Linens and patient's gown changed. Patient repositioned for comfort.
--- NOTE | 2019-06-17 18:00 | NUR ---
Patient able to do IS every two hours up to 1000ml
[2019-06-17 20:00] VITALS: BP 114/67
--- NOTE | 2019-06-17 22:47 | NUR ---
Respiratory note: INHALER GIVEN PER TRENTON RAMIREZ.
[2019-06-18] VITALS (7 sets, daily range): BP systolic 106–121; BP diastolic 63–74
[2019-06-18 04:57] LABS: Albumin 2.6 g/dL (3.4-5.0); Calcium 9.3 mg/dL (8.5-10.1); Potassium 4.5 mmol/L (3.5-5.1)
[2019-06-18 05:02] LABS: BUN/Creatinine Ratio 12.3; Bilirubin, Total 0.3 mg/dL (0.2-1.0); Total Protein 7.3 g/dL (6.4-8.2)
[2019-06-18] MEDS: ALBUTEROL SULF HFA 90MCG INH 200DOSE IN SCH ×3 (06:00→22:42)
[2019-06-18] MEDS: MEROPENEM 1GM IVPB 100 ML IV SCH ×2 (06:00→18:28)
[2019-06-18] MEDS: ACCU-CHEK COMFORT CURVE STRIP VI SCH ×4 (07:00→21:53)
[2019-06-18] MEDS: InsuLIN REG 1unit/0.01ml Soln (100units/ml) SC SCH ×4 (07:00→21:54)
[2019-06-18] MEDS: LEVOTHYROXINE SODIUM 25 MCG TAB PO SCH (07:00)
--- NOTE | 2019-06-18 07:00 | NUR ---
Pt remained stable this shift. Alert and oriented. Stated was awake all day yesterday so let sleep all night without enforcing ambulation during sleeping hours. Used BSC safely and had a BM this shift. IV remains patent. Report given, care endorsed.
--- NOTE | 2019-06-18 08:00 | NUR ---
Opening Shift Note Assumed care of patient, awake and alert. No S/S of distress/SOB or pain. Patient saturation 92% at 7 LPM oxygen via oxymizer. See interventions for complete assessment. Instructed patient to get out of bed and ambulate around room as tolerated. Bed locked on low position, side rails up x2, bed alarms on at all times, call pena within reach, instructed on POC and to call for assist PRN, will continue to monitor for changes Q1hr and PRN.
--- NOTE | 2019-06-18 10:00 | NUR ---
Patient ambulating inside room, tolerating well.
[2019-06-18] MEDS: ENOXAPARIN SOD 40 MG/0.4 ML SYRINGE SC SCH (10:34)
[2019-06-18] MEDS: LINEZOLID 600MG TABLET PO SCH ×2 (10:34→21:53)
[2019-06-18] MEDS: INSULIN LANTUS (GLARGINE) 1 /0.01ml (100units/ml) SC SCH ×2 (10:41→21:54)
--- NOTE | 2019-06-18 10:42 | NUR ---
Dr Rick at bedside, updated on patient's status. Patient seen and examined. Will carry out new orders.
[2019-06-18] MEDS ORDERED: SODIUM CHLORIDE 0.9% 1,000 ML IV ONE (10:45)
--- NOTE | 2019-06-18 13:45 | NUR ---
Dr Francisco at bedside, updated on patient's status. Patient seen and examined. Will carry out new orders.
--- NOTE | 2019-06-18 14:20 | NUR ---
Respiratory note: PT MEDNEB DUE. NOT DONE DUE TO PT BEING AT PROCEDURE.
--- NOTE | 2019-06-18 14:20 | NUR ---
KISHORE pt transferred to floor LALITA DONOVAN transfered to Tele floor via hospital bed on patient monitor and portable 02. All patient medications and personal belongings including cellphone with denture waxer and eyeglasses transfered with patient to receiving floor. Patient care transferred to Allison CHOWDHURY.
--- NOTE | 2019-06-18 14:30 | NUR ---
RECEIVED PATIENT TO ROOM 275 A . NO SIGNS AND SYMPTOMS OF DISTRESS NOTED. INSTRUCTED PATIENT ON THE PLAN OF CARE. BED LOCKED IN LOWEST POSITION WITH TWO SIDE RAILS UP AND CALL LIGHT IN REACH.
--- NOTE | 2019-06-18 14:31 | NUR ---
Nutrition Followup Notes Pt wt is 102.100 kg Pt tested negative for COVID -19. Pt appetite is good aeb 75% x4 PO intake per log yard manager. Pt with no noted complaints or distress. Will continue to monitor PO status, skin status, pertinent labs and weight trends. Will f/u in 3 to 5 days. Est energy needs: 9195-6125 kcals (20-23 kcal/kgBW) Est protein needs: 65-82 gms/day (0.8-1.0 gm/kgAdjBW) Will continue to monitor and reassess prn. LABS: BUN 29 H, CR 2.35 H, GFR 26 L (stg 4), GLUC 152 H, ALB 2.6 L GI: Last BM unknown per log yard manager BS: 14 mod risk, P/U @ Rt buttock. Please refer to wound assessment report for full details. PES: Problem 1) Inadequate oral intake r/t dietary non-compliance aeb hyperglycemia, elev A1c, dyslipidemia 2) Altered nutrition related lab values r/t current/chronic medical condition aeb hyperglycemia, elev A1c, dyslipidemia, hypoalbuminemia Comments 1) Continue to closely monitor pt PO intake to meet at least 75% of meals 2) Refer pt to RD for nutrition education upon D/C 3) Continue current plan of care
--- NOTE | 2019-06-18 19:12 | NUR ---
RECEIVED PATIENT FROM DAY SHIFT RN. PATIENT RESTING IN BED. PATIENT IS ON 6L/OXYMIZER. NO S/S OF DISTRESS NOTED. PATIENT DENIED SOB AND PAIN AT THIS TIME. IS AT BEDSIDE. PATIENT DEMONSTRATED HOW TO USE THE IS. POC INSTRUCTED AND ENCOURAGED PATIENT TO CALL FOR QUILT SEWER IF NEEDED. BED IN LOWEST POSITION WITH SIDE RAILS UP X 2. CALL ELI WITHIN REACH. ALARM ON. CONTINUE TO MONITOR FOR CHANGES Q1H AND PRN.
--- NOTE | 2019-06-18 21:55 | NUR ---
ACCU-CHECK, BS 151. INSULIN AND LANTUS GIVEN ORDERED. CONTINUE TO MONITOR. Addendum: 06/18/19 at 2156 by Sonu Perkins RN INSTRUCTED PATIENT ON SIDE EFFECTS OF MEDICATION AND S/S OF HYPOGLYCEMIA. PATIENT VERBALIZED UNDERSTANDING. CONTINUE TO MONITOR.
--- NOTE | 2019-06-18 22:00 | NUR ---
ZYVOX NOT ADMINISTERED SINCE NO MEDICATION IN PATIENT'S CASETTE. CHECKED KISHORE, NO MEDICATION FOR THIS PATIENT. CALLED AUTOMOTIVE PORTER SOLIS, SHE'S NOT ABLE TO GET MEDICATION. INSTRUCTED TO NON-ADMIN. CONTINUE TO MONITOR.
[2019-06-19] MEDS: LINEZOLID 600MG TABLET PO SCH ×3 (00:10→22:17)
--- NOTE | 2019-06-19 00:55 | NUR ---
PATIENT SLEEPING. NO S/S OF DISTRESS NOTED. O2 SAT 96%. ON 6L/OXYMIZER, PER RT, TITRATED TO 5L/OXYMIZER. CONTINUE TO MONITOR.
--- NOTE | 2019-06-19 03:36 | NUR ---
PATIENT SLEEPING. NO S/S OF DISTRESS NOTED. CONTINUE CARE.
[2019-06-19 05:59] LABS: Basophils % (auto) 0.6 % (0.0-2.0); Eosinophils # (auto) 0.4 10 ^3/uL (0-0.8); Hemoglobin 10.9 g/dL (12.2-16.2); Lymphocytes # (auto) 2.1 10 ^3/uL (0.4-5.4); Monocytes % (auto) 11.4 % (0.0-12.0); Nucleated Red Blood Cells % 0.1 %
[2019-06-19 06:00] VITALS: BP 114/72
[2019-06-19 06:02] LABS: Basophils # (auto) 0 10 ^3/uL (0-0.2); Eosinophils % (auto) 4.2 % (0.0-7.0); Hematocrit 33.1 % (36.0-46.0); Lymphocytes % (auto) 24.8 % (10.0-50.0); Mean Corpuscular Hemoglobin 26.1 pg (28.0-32.0); Mean Corpuscular Hgb Conc. 32.9 g/dL (32.0-36.0); Mean Corpuscular Volume 79.2 fL (80.0-100.0); Platelet Count (auto) 421 10^3/uL (140-450); Red Blood Cells 4.18 10^6/uL (4.0-5.20); Red Cell Distribution Width 15.9 % (11.8-14.3); White Blood Cell 8.5 10^3/uL (4.4-10.8)
[2019-06-19 06:16] LABS: BUN/Creatinine Ratio 13.6; Calcium 9.1 mg/dL (8.5-10.1); Potassium 4.3 mmol/L (3.5-5.1)
[2019-06-19] MEDS: MEROPENEM 1GM IVPB 100 ML IV SCH ×2 (06:23→17:55)
[2019-06-19] MEDS: ACCU-CHEK COMFORT CURVE STRIP VI SCH ×4 (06:24→22:18)
[2019-06-19] MEDS: LEVOTHYROXINE SODIUM 25 MCG TAB PO SCH (06:24)
[2019-06-19] MEDS: InsuLIN REG 1unit/0.01ml Soln (100units/ml) SC SCH ×4 (06:25→22:18)
[2019-06-19] MEDS: ALBUTEROL SULF HFA 90MCG INH 200DOSE IN SCH ×3 (06:27→22:13)
--- NOTE | 2019-06-19 06:35 | NUR ---
ACCU-CHECK, BS 152. INSULIN GIVEN ORDERED. CONTINUE TO MONITOR.
--- NOTE | 2019-06-19 07:37 | NUR ---
Opening Shift Note Assumed care of patient, awake and alert. No S/S of distress/SOB or pain. Instructed on POC and to call for assist PRN, will continue to monitor for changes Q1hr and PRN. Bed locked in lowest position with two side rails up and call light in reach.
[2019-06-19 09:00] VITALS: BP 113/66
[2019-06-19] MEDS: FLORASTOR (S. BOULARDII) 250 MG CAP PO SCH (11:01)
[2019-06-19] MEDS: ENOXAPARIN SOD 40 MG/0.4 ML SYRINGE SC SCH (11:01)
[2019-06-19] MEDS: INSULIN LANTUS (GLARGINE) 1 /0.01ml (100units/ml) SC SCH ×2 (11:07→22:17)
[2019-06-19 13:00] VITALS: BP 115/72
[2019-06-19 17:00] VITALS: BP 123/72
--- NOTE | 2019-06-19 18:29 | NUR ---
TITRATED OXYGEN LEVEL DOWN TO 3 L NC PATIENT O2 SATURATION IS 95%
--- NOTE | 2019-06-19 18:36 | NUR ---
PER DR MITCHELL STRICT I&O
--- NOTE | 2019-06-19 19:40 | NUR ---
RECEIVED PATIENT FROM DAY SHIFT RN. PATIENT RESTING IN BED WITH OXYGEN @ 3L WITH O2 SAT 94%. NO S/S OF DISTRESS NOTED. PATIENT DENIED SOB AND PAIN AT THIS TIME. POC INSTRUCTED AND ENCOURAGED PATIENT TO CALL FOR AUTO PARTS SALESPERSON IF NEEDED. BED IN LOWEST POSITION WITH SIDE RAILS UP X 2. CALL ELI WITHIN REACH. CONTINUE TO MONITOR FOR CHANGES Q1H AND PRN.
[2019-06-19 22:00] VITALS: BP 122/72
--- NOTE | 2019-06-19 22:19 | NUR ---
ACCU-CHECK, BS 134. INSULIN AND LANTUS GIVEN ORDERED. REINFORCED S/S OF SIDE EFFECTS OF MEDICATION. PAITENT VERBALIZED UNDERSTANDING. CONTINUE TO MONITOR.
--- NOTE | 2019-06-20 01:25 | NUR ---
PATIENT WALKED TO BATHROOM WITHOUT OXYGEN, NO S/S OF DISTRESS NOTED. URINATED 500ML. CONTINUE TO MONITOR.
--- NOTE | 2019-06-20 04:30 | NUR ---
PATIENT SLEEPING. NO S/S OF DISTRESS NOTED. CONTINUE CARE.
[2019-06-20 05:00] VITALS: BP 122/73
[2019-06-20] MEDS: LEVOTHYROXINE SODIUM 25 MCG TAB PO SCH (06:29)
[2019-06-20] MEDS: ACCU-CHEK COMFORT CURVE STRIP VI SCH ×4 (06:29→22:05)
[2019-06-20] MEDS: MEROPENEM 1GM IVPB 100 ML IV SCH ×2 (06:29→18:00)
[2019-06-20] MEDS: InsuLIN REG 1unit/0.01ml Soln (100units/ml) SC SCH ×4 (06:29→22:06)
[2019-06-20] MEDS: ALBUTEROL SULF HFA 90MCG INH 200DOSE IN SCH ×3 (06:30→23:08)
--- NOTE | 2019-06-20 06:30 | NUR ---
ACCU-CHECK, BS 125. NO COVERAGE. CONTINUE TO MONITOR.
--- NOTE | 2019-06-20 07:20 | NUR ---
Opening shift note Assumed care of patient. Patient A&Ox4, respirations even and non-labored with no s/s of distress. Discussed POC with patient who verbalized understanding. Patient IV flushed, patent and intact. Oxygen at 2L by NC. Bed lowered/locked with 2 side rails up. Call light within reach, will continue to monitor.
[2019-06-20] MEDS: ENOXAPARIN SOD 40 MG/0.4 ML SYRINGE SC SCH (09:41)
[2019-06-20] MEDS: LINEZOLID 600MG TABLET PO SCH ×2 (09:43→22:05)
[2019-06-20] MEDS: INSULIN LANTUS (GLARGINE) 1 /0.01ml (100units/ml) SC SCH ×2 (09:43→22:07)
[2019-06-20] MEDS: FLORASTOR (S. BOULARDII) 250 MG CAP PO SCH (09:44)
[2019-06-20 11:56] LABS: BUN/Creatinine Ratio 14.2; Calcium 9.5 mg/dL (8.5-10.1); Potassium 4.6 mmol/L (3.5-5.1)
[2019-06-20 12:51] VITALS: BP 105/60
--- NOTE | 2019-06-20 13:00 | NUR ---
OUTPUT 600 CC.
--- NOTE | 2019-06-20 16:17 | NUR ---
AMBULATION PATIENT WALKED IN HER ROOM FOR 10 MINUTES WITHOUT OXYGEN, TOLERATED WELL O2SAT 89% , NO DISTRESS NOTED, RESPIRATIONS RELAXED AND EVEN NO SOB. PATIENT LEFT SITTING IN BED, O2 PLACED AT 2LITERS SAT 91% WILL CONTINUE TO MONITOR.
[2019-06-20 17:00] VITALS: BP 120/65
--- NOTE | 2019-06-20 19:09 | NUR ---
ENDORSED CARE TO NIGHT RN
[2019-06-20 21:55] VITALS: BP 124/76
--- NOTE | 2019-06-20 23:09 | NUR ---
RT NOTE: PT SEEN BY RT FOR MDI TX. PT TOOK MDI ON HER OWN. NO SOB OR DISTRESS NOTED.
[2019-06-21 05:31] VITALS: BP 115/68
[2019-06-21] MEDS: MEROPENEM 1GM IVPB 100 ML IV SCH ×2 (06:31→17:34)
[2019-06-21] MEDS: ACCU-CHEK COMFORT CURVE STRIP VI SCH ×4 (06:32→21:50)
[2019-06-21] MEDS: InsuLIN REG 1unit/0.01ml Soln (100units/ml) SC SCH ×4 (06:32→21:49)
[2019-06-21] MEDS: LEVOTHYROXINE SODIUM 25 MCG TAB PO SCH (06:32)
[2019-06-21 06:37] LABS: BUN/Creatinine Ratio 14.2; Calcium 9.5 mg/dL (8.5-10.1); Potassium 4.2 mmol/L (3.5-5.1)
[2019-06-21] MEDS: ALBUTEROL SULF HFA 90MCG INH 200DOSE IN SCH ×3 (06:48→21:38)
--- NOTE | 2019-06-21 06:48 | NUR ---
RT NOTE: PT TOOK 2 PUFFS FROM MDI WITH SPACER W/O INCIDENT. WILL CONTINUE TO MONITOR.
--- NOTE | 2019-06-21 07:25 | NUR ---
Opening shift note Assumed care of patient. Patient A&Ox4, respirations even and non-labored on RA without s/s of distress. Discussed POC with patient who verbalized understanding. Bed lowered/locked with 2 side rails up, call light within reach. Will continue to monitor.
[2019-06-21 08:54] VITALS: BP 112/60
[2019-06-21] MEDS: ENOXAPARIN SOD 40 MG/0.4 ML SYRINGE SC SCH (10:08)
[2019-06-21] MEDS: LINEZOLID 600MG TABLET PO SCH ×2 (10:09→21:49)
[2019-06-21] MEDS: FLORASTOR (S. BOULARDII) 250 MG CAP PO SCH (10:09)
[2019-06-21] MEDS: INSULIN LANTUS (GLARGINE) 1 /0.01ml (100units/ml) SC SCH ×2 (10:10→21:50)
--- NOTE | 2019-06-21 12:10 | NUR ---
Dr Hunt bedside
[2019-06-21 13:00] VITALS: BP 124/77
[2019-06-21 16:03] VITALS: BP 124/77
[2019-06-21 17:00] VITALS: BP 121/74
--- NOTE | 2019-06-21 19:13 | NUR ---
ENDORSED CARE TO NIGHT RN
--- NOTE | 2019-06-21 20:00 | NUR ---
open note assumed care of pt, upon entering room pt awake, alert and oriented x4. pt on room air no distress noted or expressed. pt denies any pain. pt updated on plan of care. pt bed locked, low and 2x rails up. no additional questions at this time. call light in reach, this nurse to round q1hr and prn. this nurse encouraged pt to call as needed.
[2019-06-21 22:00] VITALS: BP 119/65
[2019-06-22 05:00] VITALS: BP 111/64
[2019-06-22] MEDS: MEROPENEM 1GM IVPB 100 ML IV SCH (06:17)
[2019-06-22] MEDS: LEVOTHYROXINE SODIUM 25 MCG TAB PO SCH (06:17)
[2019-06-22] MEDS: InsuLIN REG 1unit/0.01ml Soln (100units/ml) SC SCH ×2 (06:18→11:47)
[2019-06-22] MEDS: ACCU-CHEK COMFORT CURVE STRIP VI SCH ×2 (06:18→11:45)
[2019-06-22] MEDS: ALBUTEROL SULF HFA 90MCG INH 200DOSE IN SCH ×2 (06:20→14:35)
[2019-06-22 06:33] LABS: Calcium 9.4 mg/dL (8.5-10.1); Potassium 4.4 mmol/L (3.5-5.1)
[2019-06-22 08:54] VITALS: BP 114/64
[2019-06-22] MEDS: ENOXAPARIN SOD 40 MG/0.4 ML SYRINGE SC SCH (09:28)
[2019-06-22] MEDS: LINEZOLID 600MG TABLET PO SCH (09:28)
[2019-06-22] MEDS: FLORASTOR (S. BOULARDII) 250 MG CAP PO SCH (09:28)
[2019-06-22] MEDS ORDERED: BUMETANIDE 2.5mg/10ml (0.25 mg/ml) INJ IV ONE (12:00)
[2019-06-22] MEDS ORDERED: INSULIN LANTUS (GLARGINE) 1 /0.01ml (100units/ml) SC SCH (12:00)
[2019-06-22 13:00] VITALS: BP 108/59
[2019-06-22] MEDS ORDERED: INSU1INJ3 SC (14:33)
[2019-06-22] MEDS ORDERED: LEV25T PO (14:33)
[2019-06-22 14:51] VITALS: BP 116/84
--- NOTE | 2019-06-22 15:49 | NUR ---
Discharge instructions given as ordered. Encourage to follow up with PMD as instructed. All questions and concerns addressed. Patient verbalized understanding. Medication reconciliation form completed and copy given to patient. IV removed with catheter intact, pressure dressing applied, Telemetry unit returned to ICU. Patient taken to vehicle via wheelchair with all personal belongings, accompanied by staff and family member. No distress noted at time of departure.
== END 2019-06-22 16:30 | disposition home or self-care (01) | DRG 189 ==
LOC: ER 10:43 → TELE 10:44 → TELE-EAST 15:50 → TELE-CENTR 06-10 08:29 → TELE-EAST 06-10 10:42 → DOU IN ICU 06-10 18:02 → TELE-WESTW 06-18 14:26
PROVIDERS: ADMIT Nurse Practitioner Acute Care; ATTEND Internal Medicine
DX: J96.01 Acute respiratory failure with hypoxia (principal); J18.9 Pneumonia, unspecified organism; N17.0 Acute kidney failure with tubular necrosis; J12.89 Other viral pneumonia; J15.9 Unspecified bacterial pneumonia; R80.9 Proteinuria, unspecified; I95.9 Hypotension, unspecified; E66.9 Obesity, unspecified; E87.6 Hypokalemia; E88.09 Other disorders of plasma-protein metabolism, not elsewhere classified; E03.9 Hypothyroidism, unspecified; E11.65 Type 2 diabetes mellitus with hyperglycemia; I10 Essential (primary) hypertension; Z83.3 Family history of diabetes mellitus; Z82.49 Family history of ischemic heart disease and other diseases of the circulatory system; Z79.84 Long term (current) use of oral hypoglycemic drugs; Z03.818 Encounter for observation for suspected exposure to other biological agents ruled out; Z68.21 Body mass index [BMI] 21.0-21.9, adult
CPT/HCPCS: 36415; 36600; 71045; 71046; 71275; 74176; 76775; 80048; 80053; 80061; 80202; 80307; 81001; 82043; 82306; 82550; 82570; 82728; 82805; 82962; 83036; 83520; 83605; 83615; 83690; 83735; 83880; 84100; 84156; 84300; 84439; 84443; 84702; 85025; 85379; 85610; 85730; 86038; 86141; 86256; 86360; 86703; 86704; 86706; 86708; 86738; 86803; 87040; 87045; 87070; 87081; 87205; 87278; 87340; 87427; 87493; 87804; 87880; 93970; 94640; 99291; G0378; J0696; J1815; J2185; J2543; J3490

== ENCOUNTER → 2019-06-28 | Outpatient (CLI) | payer BC, SELFPAY ==
[~2019-06-28] MED LIST changes: -ACET325T82 PO; +INSU1INJ3 SC; +LEV25T PO
[2019-06-28 13:03] LABS: BUN/Creatinine Ratio 18.7; Calcium 9.7 mg/dL (8.5-10.1); Potassium 4.4 mmol/L (3.5-5.1)
== END | disposition home or self-care (01) ==
LOC: LAB 12:02
PROVIDERS: ATTEND Internal Medicine
DX: E11.22 Type 2 diabetes mellitus with diabetic chronic kidney disease (principal); N18.9 Chronic kidney disease, unspecified
CPT/HCPCS: 36415; 80048

== ENCOUNTER → 2019-09-20 | Outpatient (CLI) | payer BC ==
[2019-09-20 12:21] LABS: Basophils # (auto) 0 10 ^3/uL (0-0.2); Basophils % (auto) 0.5 % (0.0-2.0); Eosinophils # (auto) 0.4 10 ^3/uL (0-0.8); Eosinophils % (auto) 5.2 % (0.0-7.0); Hematocrit 34.4 % (36.0-46.0); Hemoglobin 11.4 g/dL (12.2-16.2); Lymphocytes # (auto) 3.4 10 ^3/uL (0.4-5.4); Lymphocytes % (auto) 41.2 % (10.0-50.0); Mean Corpuscular Hemoglobin 26.5 pg (28.0-32.0); Mean Corpuscular Hgb Conc. 33.2 g/dL (32.0-36.0); Mean Corpuscular Volume 79.9 fL (80.0-100.0); Monocytes # (auto) 0.7 10 ^3/uL (0-1.3); Monocytes % (auto) 8.1 % (0.0-12.0); Neutrophils # (auto) 3.7 10 ^3/uL (1.6-8.6); Platelet Count (auto) 339 10^3/uL (140-450); Red Cell Distribution Width 14.8 % (11.8-14.3); White Blood Cell 8.3 10^3/uL (4.4-10.8)
[2019-09-20 12:37] LABS: Albumin 3.5 g/dL (3.4-5.0); Potassium 3.8 mmol/L (3.5-5.1)
[2019-09-20 12:40] LABS: Bilirubin, Total 0.2 mg/dL (0.2-1.0)
== END | disposition home or self-care (01) ==
LOC: LAB 11:54
PROVIDERS: ATTEND Internal Medicine
DX: E03.9 Hypothyroidism, unspecified (principal)
CPT/HCPCS: 36415; 80053; 83036; 84439; 84443; 85025

== ENCOUNTER → 2019-12-22 | Outpatient (CLI) | payer BC ==
[2019-12-22 08:50] LABS: Basophils # (auto) 0 10 ^3/uL (0-0.2); Eosinophils # (auto) 0.3 10 ^3/uL (0-0.8); Lymphocytes # (auto) 3.3 10 ^3/uL (0.4-5.4); Monocytes # (auto) 0.5 10 ^3/uL (0-1.3); Neutrophils # (auto) 4.1 10 ^3/uL (1.6-8.6); Nucleated Red Blood Cells % 0.1 %; White Blood Cell 8.3 10^3/uL (4.4-10.8)
[2019-12-22 08:51] LABS: Basophils % (auto) 0.5 % (0.0-2.0); Eosinophils % (auto) 3.7 % (0.0-7.0); Hematocrit 31.3 % (36.0-46.0); Lymphocytes % (auto) 40.2 % (10.0-50.0); Mean Corpuscular Hemoglobin 23.9 pg (28.0-32.0); Mean Corpuscular Hgb Conc. 31.9 g/dL (32.0-36.0); Mean Corpuscular Volume 74.8 fL (80.0-100.0); Monocytes % (auto) 6.3 % (0.0-12.0); Neutrophils % (auto) 49.3 % (37.0-80.0); Platelet Count (auto) 360 10^3/uL (140-450); Red Blood Cells 4.19 10^6/uL (4.0-5.20); Red Cell Distribution Width 16.2 % (11.8-14.3)
[2019-12-22 08:52] LABS: Urine Bacteria FEW /hpf (None Seen); Urine Blood Negative /uL (Negative); Urine Specific Gravity 1.019 (1.001-1.035); Urine WBC 2 /hpf (0 - 5)
[2019-12-22 09:28] LABS: Albumin 3.4 g/dL (3.4-5.0); Anion Gap 6 (5-15); Blood Urea Nitrogen 16 mg/dL (7-18); Calcium 8.9 mg/dL (8.5-10.1); Carbon Dioxide 23 mmol/L (21-32); Chloride 107 mmol/L (98-107); Glucose 155 mg/dL (74-106); Potassium 3.9 mmol/L (3.5-5.1); Sodium 136 mmol/L (136-145)
[2019-12-22 09:33] LABS: Alanine Aminotransferase 12 U/L (13-56); Alkaline Phosphatase 58 U/L (45-117); Aspartate Aminotransferase 13 U/L (15-37); BUN/Creatinine Ratio 19.5; Bilirubin, Total 0.3 mg/dL (0.2-1.0); Cholesterol 207 mg/dL (< 200); GFR African American 106 mL/min; GFR Non-African American 88 mL/min; HDL Cholesterol 36 mg/dL (40-59); Total Protein 7.5 g/dL (6.4-8.2); Triglycerides 527 mg/dL (< 150)
== END | disposition home or self-care (01) ==
LOC: LAB 08:28
PROVIDERS: ATTEND Internal Medicine
DX: E11.22 Type 2 diabetes mellitus with diabetic chronic kidney disease (principal); N18.9 Chronic kidney disease, unspecified; E03.9 Hypothyroidism, unspecified
CPT/HCPCS: 36415; 80053; 80061; 81001; 82043; 84439; 84443; 85025

== ENCOUNTER → 2019-12-27 | Outpatient (CLI) | payer BC | END | disposition home or self-care (01) | LOC: LAB 13:49 | PROVIDERS: ATTEND Internal Medicine | DX: E11.22 Type 2 diabetes mellitus with diabetic chronic kidney disease (principal); N18.9 Chronic kidney disease, unspecified | CPT/HCPCS: 36415; 83036 ==

== ENCOUNTER → 2020-09-21 | Outpatient (CLI) | payer BC ==
[2020-09-21 13:51] LABS: Urine WBC None Seen /hpf (0 - 5)
[2020-09-21 13:55] LABS: Basophils # (auto) 0.1 10 ^3/uL (0-0.2); Eosinophils # (auto) 0.4 10 ^3/uL (0-0.8); Eosinophils % (auto) 4.4 % (0.0-7.0); Hemoglobin 11.8 g/dL (12.2-16.2); Lymphocytes # (auto) 3.6 10 ^3/uL (0.4-5.4); Monocytes # (auto) 0.6 10 ^3/uL (0-1.3); Neutrophils # (auto) 3.5 10 ^3/uL (1.6-8.6); White Blood Cell 8.2 10^3/uL (4.4-10.8)
[2020-09-21 13:57] LABS: Basophils % (auto) 0.7 % (0.0-2.0); Lymphocytes % (auto) 44.2 % (10.0-50.0); Mean Corpuscular Hemoglobin 23.5 pg (28.0-32.0); Mean Corpuscular Volume 73.5 fL (80.0-100.0); Monocytes % (auto) 7.7 % (0.0-12.0); Nucleated Red Blood Cells % 0.1 %; Red Blood Cells 5.03 10^6/uL (4.0-5.20); Red Cell Distribution Width 16.6 % (11.8-14.3)
[2020-09-21 13:58] LABS: Urine Bacteria FEW /hpf (None Seen); Urine Blood Negative /uL (Negative); Urine Specific Gravity 1.007 (1.001-1.035)
[2020-09-21 14:20] LABS: Alanine Aminotransferase 34 U/L (13-56); Albumin 3.5 g/dL (3.4-5.0); Anion Gap 9 (5-15); Blood Urea Nitrogen 11 mg/dL (7-18); Carbon Dioxide 23 mmol/L (21-32); Chloride 102 mmol/L (98-107); Glucose 241 mg/dL (74-106); Sodium 134 mmol/L (136-145)
[2020-09-21 14:25] LABS: Alkaline Phosphatase 62 U/L (45-117); Aspartate Aminotransferase 21 U/L (15-37); BUN/Creatinine Ratio 15.1; Bilirubin, Total 0.3 mg/dL (0.2-1.0); Cholesterol 183 mg/dL (< 200); GFR African American 120 mL/min; GFR Non-African American 99 mL/min; HDL Cholesterol 35 mg/dL (40-59); Total Protein 8.2 g/dL (6.4-8.2); Triglycerides 501 mg/dL (< 150)
== END | disposition home or self-care (01) ==
LOC: LAB 13:34
PROVIDERS: ATTEND Internal Medicine
DX: E11.29 Type 2 diabetes mellitus with other diabetic kidney complication (principal); E03.9 Hypothyroidism, unspecified; E78.5 Hyperlipidemia, unspecified
CPT/HCPCS: 36415; 80053; 80061; 81001; 82043; 83036; 84443; 85025